=== PATIENT | female | born 1950 | race Caucasian/White ===

== ENCOUNTER → 2016-07-26 08:12 | Outpatient (CLI) | payer MEDICARE, OTHER ==
[2016-05-03 11:24] VITALS: BMI 26.6
[~2016-07-26 08:12] MED LIST: GABAPENTIN100 MG PO; HYDROCODONE-APA1 TAB PO; LISINOPRIL-HCTZ1 T11 PO; METOPROLOL TART50 MG PO; MULTI-DAY VITAM1 TAB PO; NORVASC10 MG PO; OMEPRAZOLE20 M1 PO; PERCOCET 10/3251 TA1 PO; PROAIR HFA8.5 GM INH; ROBAXIN-750750 MG PO; STOOL SOFTENER100 M1 PO
== END | disposition home or self-care (01) ==
LOC: D.MRI 07-23 08:00
DX: G89.18 Other acute postprocedural pain (principal)

== ENCOUNTER 2016-09-09 15:00 | Inpatient (IN) | payer MEDICARE, OTHER ==
[~2016-09-09] VITALS: Ht 160 cm; Wt 70.5 kg
--- NOTE | ~2016-09-09 | OP ---
PATIENT NAME: RIANNA MURRAY MEDICAL RECORD: [id number] :52 LOCATION:[id number] ADMISSION DATE:09/10/16 SURGEON: AMANDA BARKSDALE MD DATE OF OPERATION: 09/10/2016 DIAGNOSIS: L3-L4 spondylolisthesis and degenerative disc disease with nerve root compression. PROCEDURES: 1. L3-L4 facetectomy and hemilaminectomy. 2. L3-L4 radical discectomy. 3. L3-L4 transforaminal lumbar interbody fusion. 4. Pedicle fixation L3-L4 on the left. 5. L2-L3 left laminotomy and foraminotomy for nerve root compression at L2-L3. SURGEON: Amanda Barksdale MD FABRIC WORKER SUPERVISOR: None. ESTIMATED BLOOD LOSS: 200 cc. COMPLICATIONS: None. SUMMARY: The patient was taken to the operating room and after an adequate level of general anesthetic, was placed on a Gelfoam pads and prepped and draped in the usual aseptic manner. An incision was made to the left of the spinous processes of L2, L3 and L4 with a 10 blade after infiltrating with 1:400,000 of epinephrine and 0.5% lidocaine. Dissection was carried out down to the facet joint at L2-L3, and a facetectomy was performed with an Adson rongeur using a Ramesh retractor for exposure. When the facet at L2-L3 on the left had been removed, the laminotomy was enlarged by removing some of the lamina of L2 and L3 medially. Following this, ligamentum flavum was removed and dissection of the foraminal portion of the annulus was carried out. An osteotome was used to open up the annulus, removing osteophytes and then disc material was removed piecemeal using a straight and upbiting pituitary as well as various curettes to thoroughly clean out the disc space. When this had been completed, a [employer] spine trial was used to determine at a 9 mm cage would best fit the interspace and a 9 x 23 mm 0-degree titanium cage was then inserted in the interspace after being packed with autologous bone. Hydroxyapatite soaked in bone marrow aspirate was placed in the interspace as well to the side of the cage. When the cage was properly placed medially and anteriorly, then, pedicle screws were placed in L2 and L3 using Christine 5.5 x 45 mm ES2 screws on the left side at L2 and L3. The screws were then connected to a 50 mm connecting shlomo. Cap locks were placed on the screws and given a final tightening and then the flanges were broken off. Following this, the wound was irrigated and a posterolateral fusion mass was created with the hydroxyapatite material soaked in bone marrow aspirate placed in a gutter at L3-L4 on the left. Following this, the Ramesh retractor was moved up to the L2-L3 interspace and the medial aspect of the facet joint was removed with a Midas-Dinesh drill and then the laminotomy was enlarged by removing some of the lamina of L2 and L3 medially. The ligamentum flavum was removed, the neural foramen, the exiting nerve root was then enlarged and dissection was carried out beneath the exiting and traversing nerve root and it was determined that no free disc fragment was present. A thorough decompression having been performed by the foraminotomy, the wound was irrigated with an antibiotic solution and the wounds were closed with 2-0 Dexon on the fascia, 3-0 OPERATIVE REPORT [id number] RIANNA MURRAY Dexon on the subcutaneous tissue and a subcuticular stitch with 4-0 Dexon on the skin. The patient tolerated the procedure well and was taken to recovery in stable condition. TRANSINT:[id number] Voice Confirmation ID: [id number] DOCUMENT ID: [id number] AMANDA BARKSDALE MD CC: [id number] DICTATION DATE: 09/27/16 1337 TITLE CHECKER: 09/27/162238 DIS IN 09/14/16 [facility] [address] [place] [address]
[~2016-09-09 15:00] MED LIST changes: -PERCOCET 10/3251 TA1 PO; -ROBAXIN-750750 MG PO
[2016-09-09 15:42] LABS: BASOPHILS 0.3 % (0-2); HEMATOCRIT 40.9 % (36.0-48.0); IMMATURE GRANULOCYTES 0.1 % (0-5); LYMPHOCYTES 11.5 % (15-50); MCH 31.7 pg (26.0-34.0); MCHC 34.2 g/dL (31.0-37.0); MCV 92.5 fL (80.0-100.0); NEUTROPHILS 74.1 % (40-80); PLATELET COUNT 324 10x3/uL (130-400); RBC 4.42 10x6/uL (4.00-5.40); RDW 13.9 % (11.5-14.5); WBC 10.5 10x3/uL (4.8-10.8)
[2016-09-09 15:53] LABS: CALC OSMOLALITY 264 mosm/kg (275-300); CALCIUM 9.6 mg/dL (8.5-10.1); CARBON DIOXIDE 30.7 mmol/L (21.0-32.0); CHLORIDE - SERUM 92 mmol/L (98-107); CREATININE - SERUM 0.7 mg/dL (0.6-1.3); GLUCOSE 111 mg/dL (74-106); POTASSIUM - SERUM 3.3 mmol/L (3.5-5.1); SODIUM 131 mmol/L (136-145); UREA NITROGEN 15 mg/dL (7-18); eGFR NON AFRICAN AMERICAN 89 mL/min (90-120)
[2016-09-09 15:56] LABS: APPEARANCE CLEAR (CLEAR); BILIRUBIN NEGATIVE (NEGATIVE); COLOR DK YELLOW (YELLOW); GLUCOSE NEGATIVE (NEGATIVE); KETONE NEGATIVE (NEGATIVE); LEUKOCYTE ESTERASE TRACE (NEGATIVE); NITRITE NEGATIVE (NEGATIVE); PROTEIN NEGATIVE (NEGATIVE); SPECIFIC GRAVITY 1.015 (1.005-1.020); UROBILINOGEN NORMAL (NORMAL)
[2016-09-09 15:57] LABS: BACTERIA FEW /hpf (NONE SEEN); EPITHELIAL CELLS 0-5 /hpf (0-5); MUCUS >1+ /lpf (NONE SEEN); RED CELLS - URINE 0-5 /hpf (0-5); WHITE CELLS - URINE 0-5 /hpf (0-5)
[2016-09-10] VITALS (11 sets, daily range): BP systolic 83–111; BP diastolic 42–69; Ht 160 cm; Wt 70.5 kg
--- NOTE | 2016-09-10 09:32 | HP ---
PATIENT: RIANNA MURRAY MEDICAL RECORD: [id number] ACCOUNT: [id number] LOCATION:[facility] [place] 52 ADMISSION DATE: 09/10/16 HISTORY AND PHYSICAL EXAMINATION CHIEF COMPLAINT: Back pain. HISTORY OF PRESENT ILLNESS: This is a pleasant, small-framed white female who presented to our office with complaints of back pain. It has been ongoing worsening since March 2016. In April 2016, she had an L3-L4 lumbar nerve root compression released by Dr. Barksdale. She initially had some slight relief, but continues to have pain. She has been placed on Neurontin 300 mg t.i.d. with very little relief and taking hydrocodone. She complains of her left leg burning. She has a significant limp and it is difficult for her to walk for any distance and she is now at the point where she wants to proceed with surgery. PAST MEDICAL HISTORY: Significant for high blood pressure. PAST SURGICAL HISTORY: Hysterectomy, right total knee, lumbar laminectomy 2007 and again in April 2016. She has had surgery on her right hand and a bladder suspension. SOCIAL HISTORY: She is . Both parents have . She smokes half a pack per day. FAMILY DOCTOR: Christian Alatorre DO. ALLERGIES: None. REVIEW OF SYSTEMS: She denies any recent chest pain, shortness of breath or weight changes. PHYSICAL EXAMINATION: HEENT: Normocephalic. Pupils are equal, reactive to light. CHEST: Clear to auscultation. HEART: S1 and S2. ABDOMEN: Soft, bowel sounds present. EXTREMITIES: She has a positive straight leg raise on the left. She continues to have the decreased ankle jerk on the left with a positive straight leg raise. She does not use an assistive device. IMPRESSION: L3-L4 spondylolisthesis grade I. L2-L3 nerve root compression on the left. PLAN: An L3-L4 TLIF and an L2-L3 foraminotomy on the left. The risk and benefits of surgery have been explained to her in detail. Risks include bleeding, failure to relieve symptoms, problems with anesthesia and . Time was allowed for questions, questions were answered. The patient wishes to proceed with surgery. TRANSINT:[id number] Voice Confirmation ID: [id number] DOCUMENT ID: [id number] Dictated By: SOILA SHANIQUA I have interviewed/examined the above patient and agree with these documented HISTORY AND PHYSICAL [id number] RIANNA MURRAY findings. AMANDA BARKSDALE MD at 0935 at 0932 CC: [id number] DICTATION DATE: 09/09/16 1344 MANAGER AUTOMOTIVE: 09/09/16 2019 ADM IN [facility] [address] [place] [place] [id number]
--- NOTE | 2016-09-10 14:39 | NUR ---
NO NUMBNESS OT TINGLING REPORTED EQUAL STRENGHTS BOTH LOWER EXTREMETIES
--- NOTE | 2016-09-10 15:15 | NUR ---
RECEIVED TO ROOM 2211 VIA BED FROM PACU. AROUSED TO VERBAL AND TACTILE STIMULATION. ORIENTED X3. NO C/O PAIN OR DISCOMFORT AT THIS TIME. FAMILY AT BEDSIDE. DRESSING TO MID LOWER BACK WITH SOME SIGNS OF WOUND OOZING. WILL MONITOR.
--- NOTE | 2016-09-10 17:03 | NUR ---
DRESSING CHANGED TO MID LOWER BACK, WAS SATURATED. OOZING APPEARS TO HAVE ALMOST STOPPED AT THIS TIME. INCISION IS CLEAN WITH CLIPS INTACT.
--- NOTE | 2016-09-10 18:00 | NUR ---
BP CONTINUES TO BE LOW. 82/49. DR. ROJAS NOTIFIED OF SAME. NEW ORDERS RECEIVED FOR 500CC BOLUS. INITIATED BOLUS. WILL MONITOR BP.
[2016-09-11 08:03] VITALS: BP 99/51
--- NOTE | 2016-09-11 08:16 | NUR ---
AWAKE AND ALERT. ORIENTED X3. C/O BACK PAIN LEVEL 9. REQUESTED AND GIVEN ONE HYDROCODONE PO FOR SAME. WILL MONITOR. LUNGS ARE CLEAR BILATERALLY, NO COUGH NOTED. SKIN IS INTACT WITHOUT REDNESS EXCEPT INCISION TO MID LOWER BACK WHICH HAS A DRY INTACT DRESSIGN IN PLACE. IV TO LEFT FOREARM/WRIST PATENT WITHOUT REDNESS AT INSERTION SITE. WARM MOIST HEAT APPLIED TO BACK FOR PAIN MANAGEMENT. WILL MONITOR.
[2016-09-11 09:56] LABS: BASOPHILS 0 % (0-2); EOSINOPHILS 0 % (0-7); IMMATURE GRANULOCYTES 0.3 % (0-5); LYMPHOCYTES 7.8 % (15-50); MCH 31.3 pg (26.0-34.0); MCHC 34.3 g/dL (31.0-37.0); MCV 91.3 fL (80.0-100.0); NEUTROPHILS 84.9 % (40-80); RBC 3.55 10x6/uL (4.00-5.40); RDW 13.7 % (11.5-14.5); WBC 12.9 10x3/uL (4.8-10.8)
[2016-09-11 10:00] LABS: HEMATOCRIT 32.4 % (36.0-48.0); HEMOGLOBIN 11.1 g/dL (12-16); PLATELET COUNT 244 10x3/uL (130-400)
--- NOTE | 2016-09-11 10:05 | NUR ---
REQUESTED AND GIVEN ONE PERCOCET PO FOR CONTINUED C/O BACK PAIN LEVEL7. WILL MONITOR.
--- NOTE | 2016-09-11 10:45 | NUR ---
BACK BRACE HERE PER CURT. AMBULATED IN HALLWAY WITH PT WITH BRACE IN PLACE. REPORTS PAIN IMPROVED GREATLY WITH USE OF PERCOCET.
--- NOTE | 2016-09-11 12:15 | NUR ---
ATE MOST OF CL LUNCH. DENIES NEEDS.
[2016-09-11 12:33] VITALS: BP 109/63
--- NOTE | 2016-09-11 13:58 | NUR ---
UP TO BR PER SELF. VOIDED CLEAR YELLOW URINE WITHOUT DIFFICULTY. REQUESTED AND GIVEN ONE PERCOCET PO FOR C/O BACK PAIN LEVEL 9. WILL MONITOR.
[2016-09-11 15:34] VITALS: BP 136/85
--- NOTE | 2016-09-11 19:24 | NUR ---
NO CHANGES AT THIS TIME. REPORTS GOOD RELIEF WITH USE OF PERCOCET THIS TIME.
--- NOTE | 2016-09-11 19:51 | NUR ---
GREETED AND ASSESSED PT AT THIS TIME
[2016-09-11 20:00] VITALS: BP 138/81
--- NOTE | 2016-09-11 21:59 | NUR ---
ALL HS MEDS WERE TAKEN AND PT WAS ALSO GIVEN HER PERCOCET EARLY WITH A ROBAXIN TO TRY AND GET HER PAIN UNDER CONTROL. ASSISTED UP TO THE BATHROOM TO VOID AND THEN SHE IS BACK IN BED WITH HER BRACE OFF. DRESSING LOOKS GOOD.
[2016-09-12] VITALS: BP 118/65
[2016-09-12 04:00] VITALS: BP 140/69
--- NOTE | 2016-09-12 04:40 | NUR ---
HAS BEEN AWAKE MOST OF THE NIGHT WITH BACK PAIN. IS NOW WEARING HER BACK BRACE IN BED AND WAITING FOR TIME FOR HER NEXT PAIN MED WHICH WILL BE AT 5 AM.
[2016-09-12 07:57] VITALS: BP 127/69
--- NOTE | 2016-09-12 08:14 | NUR ---
AWAKE AND ALERT. ORIENTED X3. C/O INTENSE BACK PAIN THIS AM LEVEL 10. REQUESTED AND GIVEN ONE PERCOCET PO FOR SAME. WILL MONITOR. LUNGS ARE CLEAR BILATERALLY, NO COUGH NOTED. DRESSING TO MID LOWER BACK DRY AND INTACT. IV TO LEFT FOREARM IS PATENT WITHOUT REDNESS AT INSERTION SITE. NO NEEDS NOTED.
--- NOTE | 2016-09-12 10:00 | NUR ---
UP TO BR PER SELF. CONTINUES TO C/O BACK PAIN. BRACE IN PLACE AT THIS TIME. DENIES NEEDS.
--- NOTE | 2016-09-12 12:30 | NUR ---
REGULAR LUNCH TRAY SERVED IN ROOM. REQUESTED AND GIVEN ONE PERCOCET PO FOR C/O BACK PAIN LEVEL 9. WILL MONITOR.
[2016-09-12 12:41] VITALS: BP 114/68
--- NOTE | 2016-09-12 13:30 | NUR ---
RESTING QUIETLY AT THIS TIME. DENIES NEEDS. REPORTS GOOD RELIEF FROM PAIN AT THIS TIME.
--- NOTE | 2016-09-12 15:45 | NUR ---
NO CHANGES NOTED. DENIES NEEDS.
[2016-09-12 15:57] VITALS: BP 120/67
--- NOTE | 2016-09-12 18:28 | NUR ---
REPORTS GOOD RELIEF OF PAIN AFTER PERCOCET. NOT EATING AT THIS TIME. ENCOURAGED TO EAT SUPPER TRAY. NO CHANGES NOTED.
--- NOTE | 2016-09-12 19:30 | NUR ---
RECIEVED SHIFT REPORT. PT IS LYING IN BED. ALERT AND ORIENTED AND ABLE TO VERBALIZE NEEDS. IV IS PATENT AND SALINE LOC AT THIS TIME. PT IS AMBULATORY BUT WAS INSTRUCTED TO CALL FOR ANY ASSISTANCE NEEDED. PT STATES PAIN IS 4/10. DRESSING TO BACK C/D/I. NO NEEDS ARE VERBALIZED AT THIS TIME. WILL CONTINUE TO MONITOR. SIDE RAILS ARE UP X 2. BED IS IN LOWEST POSITION. CALL LIGHT IS WITHIN REACH.
[2016-09-12 20:00] VITALS: BP 129/71
--- NOTE | 2016-09-12 20:16 | NUR ---
SHIFT ASSESSMENT COMPLETED. NIGHT MEDS GIVEN WITH NO PROBLEMS. PT REQUESTING PRN ROBAXIN FOR BACK SPASM. ADMINISTERED PER ORDER. DENIES FURTHER NEEDS. WILL MONITOR. SIDE RAILS X 2. BED LOW. CALL LIGHT IN REACH.
[2016-09-13 04:00] VITALS: BP 133/80
--- NOTE | 2016-09-13 07:40 | NUR ---
PATIENT IS MOVING AROUND MOANING AND VERBALIZING PAIN. PATIENT STATED "I WAS TRYING TO SIT UP BUT MY PAIN IS TOO BAD." ASSISTED PATIENT GETTING COMFORTABLE IN BED. PATIENT DENIES FURTHER NEEDS. BED IN LOWEST POSITION, CALL LIGHT IN REACH. BED RAILS UP X'S 2. BACK BRACE ON.
[2016-09-13 07:54] VITALS: BP 121/73
--- NOTE | 2016-09-13 08:45 | NUR ---
PATIENT AMBULATING IN THE [place] WITH DAUGHTER. LUMBAR BRACE ON. NO SIGNS OF DISTRESS NOTED.
[2016-09-13 11:26] VITALS: BP 122/59
--- NOTE | 2016-09-13 11:35 | NUR ---
CHANGED DRESSING TO INCISION ON BACK. REMOVED DRESSING. INCISION IS WITHOUT REDNESS OR DRAINING. 6 RAFAELA INTACT. APPLIED NEW BORDERED GAUZE DRESSING.
[2016-09-13 15:41] VITALS: BP 114/69
--- NOTE | 2016-09-13 17:23 | NUR ---
Patient Name: RIANNA MURRAY Admission Status: Elective Accout number: [id number] Admission Date: 09-10-2016 : 1950 Admission Diagnosis: Attending: OJ Current LOS: 3 Anticipated DC Date: 09-15-2016 Planned Disposition: Home Primary Insurance: MEDICARE A & B Discharge Planning Comments: CM MET WITH PATIENT REGARDING D/C NEEDS AND PLANS. PATIENT STATED SHE LIVES ALONE AND HER DAUGHTER (BRAYDON) WILL DRIVE HER HOME. PATIENT HAS 1 STEP W/O RAIL TO ENTER HOME AND NO STAIRS INSIDE. PATIENT IS INDEPENDENT WITH HER CARE AND HAS NO DME AT HOME. PATIENTS PCP IS DR. PARMAR AND USES [facility] [address] FOR HER PHARMACY. CM WILL CONTINUE TO FOLLOW PATIENT WITH D/C NEEDS AND PLANS. PCP DR. GHULAM JUNG [address] [phone] BRAYDON OLIVARES [phone] Drill Presser: Conchita Hwang Is the patient Alert and Oriented? Yes 0 * How many steps to enter\exit or inside your home? 1 0 * PCP DR. PARMAR 0 * Pharmacy [facility] [address] 0 * Preadmission Environment Home Alone 0 * ADLs Independent 0 * Equipment None 0 * List name and contact numbers for known caregivers / representatives who currently or will assist patient after discharge: BRAYDON OLIVARES (DAUGHTER) [phone] * Community resources currently utilized None 0 * Additional services required to return to the preadmission environment? Yes 0 * Can the patient safely return to the preadmission environment? Yes 0 * Has this patient been hospitalized within the prior 30 days at any hospital? No 0 Grand Total: 0
--- NOTE | 2016-09-13 19:00 | NUR ---
PATIENT ON RIGHT SIDE IN BED. HOB 45 DEGREES. RR EVEN AND UNLABORED. 0 S/S OF DISTRESS. STATES PAIN IS A 7/10. IV TO LEFT WRIST S/L WITH NO REDNESS OR SWELLING. DRESSING TO LOWER BACK CDI. BRACE OFF AT THIS TIME. SCD'S IN ROOM BUT OFF. SRX2. BED LOW. CALL LIGHT WITHIN REACH.
[2016-09-13 20:00] VITALS: BP 134/77
--- NOTE | 2016-09-13 22:00 | NUR ---
PATIENT C/O SEVERE HEARTBURN. STATES THAT SHE TAKES OMEPRAZOLE AT HOME. SPOKE WITH DR. BA AND RECEIVED ORDER FOR PROTONIX. PROTONIX GIVEN. NIGHTTIME MEDS GIVEN. CHANGED DRESSING TO LOWER BACK.
--- NOTE | 2016-09-13 23:55 | NUR ---
PERCOCET AND ROBAXIN GIVEN FOR PAIN. WILL REASSESS.
[2016-09-14] VITALS: BP 133/80
--- NOTE | 2016-09-14 03:18 | NUR ---
PATIENT AWAKE IN BED. STATES THAT HER PAIN IS GONE BUT THAT SHE "JUST CAN'T SLEEP."
--- NOTE | 2016-09-14 04:35 | NUR ---
PERCOCET GIVEN FOR PAIN.
--- NOTE | 2016-09-14 07:30 | NUR ---
PATIENT IS RESTING QUIETLY WITH EYES CLOSED. NO SIGNS OF DISTRESS NOTED. BED IN LOWEST POSITION, CALL LIGHT IN REACH. BED RAILS UP X'S 2.
[2016-09-14 08:07] VITALS: BP 119/88
[2016-09-14] MEDS ORDERED: ROBAXIN-750750 MG PO (12:06)
[2016-09-14] MEDS ORDERED: PERCOCET 10/3251 TA1 PO (12:06)
--- NOTE | 2016-09-14 13:31 | NUR ---
CM REASSESSMENT NOTE: PATIENT IS DISCHARGING HOME TODAY-DAUGHTER DRIVING HER. PATIENTS WALKER WILL BE DELIVERED TO ROOM BEFORE D/C FROM [facility]. D/C IMM SERVED
--- NOTE | 2016-09-14 14:50 | NUR ---
DISCHARGE INSTRUCTIONS COMPLETED WITH PATIENT. D/C IV WITH CATH INTACT. PATIENT DENIES QUESTIONS. PAPER PERSCRIPTIONS GIVEN TO PATIENT. PATIENT LEFT VIA WHEELCHAIR WITH DAUGHTER AND POLISHER SAND. LUMBAR BRACE ON.
== END 2016-09-14 15:39 | disposition home or self-care (01) | DRG 552 ==
LOC: D.SDCHOLD 09-10 05:35 → D.MS 09-10 05:35 → D.SDCHOLD 09-10 11:00 → D.MS 09-10 14:37
PROVIDERS: ADMIT Neurological Surgery
DX: M43.16 Spondylolisthesis, lumbar region (principal); D62 Acute posthemorrhagic anemia; I10 Essential (primary) hypertension; F17.200 Nicotine dependence, unspecified, uncomplicated

== ENCOUNTER → 2016-10-22 07:28 | Outpatient (CLI) | payer MEDICARE, OTHER ==
[2016-09-10 15:19] VITALS: BMI 27.5
[~2016-10-22 07:28] MED LIST changes: +PERCOCET 10/3251 TA1 PO; +ROBAXIN-750750 MG PO
== END | disposition home or self-care (01) ==
LOC: D.RAD 07:28
DX: M43.26 Fusion of spine, lumbar region (principal)

== ENCOUNTER → 2016-11-26 08:00 | Outpatient (CLI) | payer MEDICARE, OTHER ==
[2016-09-10 15:19] VITALS: BMI 27.5
== END | disposition home or self-care (01) ==
LOC: D.RAD 08:00
DX: Z48.811 Encounter for surgical aftercare following surgery on the nervous system (principal)

== ENCOUNTER 2017-03-23 10:13 | Emergency (ER) | payer MEDICARE, OTHER ==
[2016-09-10 15:19] VITALS: BMI 27.5
[2017-03-23 10:42] LABS: BASOPHILS 0.4 % (0-2); EOSINOPHILS 1.9 % (0-7); HEMATOCRIT 37.7 % (36.0-48.0); HEMOGLOBIN 13.2 g/dL (12-16); IMMATURE GRANULOCYTES 0.3 % (0-5); LYMPHOCYTES 23.6 % (15-50); MCH 32.1 pg (26.0-34.0); MCV 91.7 fL (80.0-100.0); MEAN PLATELET VOLUME 8.4 fL (7.4-10.4); MONOCYTES 8.4 % (2-11); NEUTROPHILS 65.4 % (40-80); PLATELET COUNT 281 10x3/uL (130-400); RBC 4.11 10x6/uL (4.00-5.40); WBC 7.7 10x3/uL (4.8-10.8)
[2017-03-23 10:58] LABS: ALBUMIN 3.4 g/dL (3.4-5.0); ALKALINE PHOSPHATASE 120 U/L (46-116); ALT (SGPT) 24 U/L (10-68); BILIRUBIN - TOTAL 0.33 mg/dL (0.2-1.3); CALC OSMOLALITY 271 mosm/kg (275-300); CARBON DIOXIDE 28.5 mmol/L (21.0-32.0); CHLORIDE - SERUM 98 mmol/L (98-107); CREATININE - SERUM 0.7 mg/dL (0.6-1.3); GLUCOSE 115 mg/dL (74-106); POTASSIUM - SERUM 3.3 mmol/L (3.5-5.1); PROTEIN - SERUM 7.2 g/dL (6.4-8.2); SODIUM 136 mmol/L (136-145); UREA NITROGEN 11 mg/dL (7-18); eGFR NON AFRICAN AMERICAN 89 mL/min (90-120)
[2017-03-23 11:03] LABS: CREATINE KINASE 55 UL (21-215)
[2017-03-23 11:07] LABS: TROPONIN-I < 0.017 ng/mL (0.000-0.060)
[2017-03-23 14:38] LABS: APPEARANCE SLT CLOUDY (CLEAR); COLOR DK YELLOW (YELLOW)
[2017-03-23 14:39] LABS: BACTERIA MODERATE /hpf (NONE SEEN); BILIRUBIN NEGATIVE (NEGATIVE); CALCIUM OXALATE CRYSTALS 0-5 /hpf (NONE SEEN); EPITHELIAL CELLS 0-5 /hpf (0-5); GLUCOSE NEGATIVE (NEGATIVE); GRANULAR CAST OCC /lpf (NONE SEEN); HYALINE CAST 0-5 /lpf (NONE SEEN); KETONE NEGATIVE (NEGATIVE); MUCUS >1+ /lpf (NONE SEEN); NITRITE NEGATIVE (NEGATIVE); PROTEIN NEGATIVE (NEGATIVE); RED CELLS - URINE RARE /hpf (0-5); SPECIFIC GRAVITY 1.015 (1.005-1.020); WHITE CELLS - URINE 0-5 /hpf (0-5)
== END 2017-03-23 14:52 | disposition home or self-care (01) ==
LOC: D.ER 10:13
PROVIDERS: Emergency Medicine
DX: R55 Syncope and collapse (principal); F17.200 Nicotine dependence, unspecified, uncomplicated; I45.10 Unspecified right bundle-branch block

== ENCOUNTER 2017-06-07 07:14 | Outpatient (CLI) | payer MEDICARE, OTHER ==
[~2017-06-07] VITALS: Ht 157.5 cm; Wt 63.6 kg
--- NOTE | ~2017-06-07 | HEMODYNAMI ---
PATIENT:RIANNA MURRAY MEDICAL RECORD: [id number] : 52 LOCATION:[facility] ADMISSION DATE: 06/07/17 Generatedon:06/07/201710:05 Patient name: RIANNA MURRAY Patient #: [id number] : 1950 Date of study: 06/07/2017 Page: Of Hemodynamic Procedure Report Patient Data Patient Demographics Procedure consent was obtained First Name: RIANNA Gender: Female Last Name: TERRI : 1950 [facility] Initial: MARIELA Age: 67 year(s) Patient #: [id number] Race: SSN: [id number] Additional ID: [id number] Contact details Address: [address] [place] [address] STREET State: [place] City: [place] Zip code: [address] Admission Admission Data Admission Date: 06/07/2017 Admission Time: 7:14 Arrival Date: 06/07/2017 Arrival Time: 9:30 Admit Source: Other Insurance Payor: Medicare Height (in.): 62 BSA: 1.64 (m2) Height (cm.): 157.48 BMI: 25.61 (kg/m2) Weight (lbs.): 140 Weight (kg.): 63.5 Lab Results Lab Result Date: 06/07/2017 Lab Result Time: 0:00 Biochemistry Name Units Result Min Max BUN mg/dl 30 --(----)-* 7 18 Creatinine mg/dl 0.8 --(-*--)-- 0.6 1.3 CBC Name Units Result Min Max Hemoglobin g/dl 12.5 *-(----)-- 13.5 17.5 Procedure Procedure Types Cath Procedure Diagnostic Procedure [facility] w/Coronaries PCI Procedure Coronary Stent Coronary Stent Initial Miscellaneous Procedures Moderate Sedation up to 30 minutes Procedure Description Procedure Date Procedure Date: 06/07/2017 Procedure Start Time: 9:51 Procedure End Time: 10:03 Procedure Staff Name Function Ramon Hernandez MD Performing Physician Denise Galvez RT Monitor Vi Barksdale RT Scrub Donnell Veliz RN Nurse Procedure Data Cath Procedure Fluoroscopy Diagnostic fluoroscopy Total fluoroscopy Time: 3.4 time: 3.4 min min Diagnostic fluoroscopy Total fluoroscopy dose: 534 dose: 534 mGy mGy Contrast Material Contrast Material Type Amount (ml) Isovue 300 86 Entry Location Entry Primary Successful Side Size Upsize Upsize Entry Closure Danielle ccessful Closure Location (Fr) 1 (Fr) 2 (Fr) Remarks Device Remarks Radial Right 6 Fr Mechanical artery Short Compression Estimated blood loss: 5 ml Diagnostic catheters Device Type Used For End Catheter Placement DIAGNOSTIC [place] 110cm 5 Multi-vessel Fr catheter ([id number]) Angiography Procedure Complications No complications Procedure Medications Medication Administration Route Dosage Oxygen NC 2 l/min Heparin Flush Bag added to field 2 bags (1000units/500ml NS) 0.9% NaCl I.V. 100 ml/hr Radial Cocktail added to field 1 syringe (Verapomil 2mg/Nitro 400mcg/Heparin 1500units) Fentanyl I.V. 50 mcg Versed I.V. 1 mg Fentanyl I.V. 50 mcg Versed I.V. 1 mg Radial Cocktail I.A. 1 syringe (Verapomil 2mg/Nitro 400mcg/Heparin 1500units) Heparin Bolus I.V. 4000 units Hemodynamics Rest BSA: 1.64 (m2) HGB: 12.5 (g/dl) O2 Consumption: Estimated: 158.21 (ml/min) O2 Co nsumption indexed: Estimated:96.47 (ml/min/m) Heart Rate: 79 (bpm) Pressure Samples Time Site Value (mmHg) Purpose Heart Use Rate(bpm) 9:53 LV 25/16,13 Snapshot 88 Snapshots Pre Cath Intra NCS Post Cath Vital Signs Time Heart Resp SPO2 etCO2 NIBP Rhythm Pain Sedation Rate (ipm) (%) (mmHg) (mmHg) Status Level (bpm) 9:34:38 80 16 96 0 109/73(95) NSR 0 (11) 10(A) , No pain 9:38:44 79 17 100 37.5 110/72(93) NSR 0 (11) 10(A) , No pain 9:42:47 80 16 99 43.5 108/77(93) NSR 0 (11) 10(A) , No pain 9:46:51 81 19 97 42.1 112/75(95) NSR 0 (11) 10(A) , No pain 9:53:06 85 17 98 44.3 101/77(95) NSR 0 (11) 9(A) , No pain 9:57:08 89 16 93 44.3 100/70(96) NSR 0 (11) 9(A) , No pain 10:01:05 86 6 95 44.3 93/74(89) NSR 0 (11) 10(A) , No pain Medications Time Medication Route Dose Verified Delivered Reason Notes Effectiveness by by 9:36:52 Oxygen NC 2 l/min Ramon Jacobo Per physician David Veliz RN 9:36:59 Heparin Flush added 2 bags Ramon Jacobo used for Bag to David Veliz RN procedure (1000units/500ml field NS) 9:37:07 0.9% NaCl I.V. 100 Ramon Jacobo Per physician ml/hr David Veliz RN 9:37:14 Radial Cocktail added 1 Ramon Jacobo used for (Verapomil to syringe David Veliz RN procedure 2mg/Nitro field 400mcg/Heparin 1500units) 9:49:27 Fentanyl I.V. 50 mcg Ramon Jacobo for sedation David Veliz RN 9:49:34 Versed I.V. 1 mg Ramon Jacobo for sedation David Veliz RN 9:51:24 Fentanyl I.V. 50 mcg Ramon Jacobo for sedation David Veliz RN 9:51:29 Versed I.V. 1 mg Ramon Jacobo for sedation David Veliz RN 9:53:00 Radial Cocktail I.A. 1 Ramon Navarro for (Verapomil syringe David Hernandez MD vasodilation 2mg/Nitro 400mcg/Heparin 1500units) 9:59:39 Heparin Bolus I.V. 4000 Ramon Jacobo for units David Veliz RN anticoagulation Procedure Log Time Note 9:20:44 Informed consent obtained and on chart 9:20:46 Diagnostic Cath Status : Elective 9:21:19 Denise Galevz RT(R) sent for patient. Start room use. 9:21:20 Time tracking: Regular hours 9:21:24 Plan of Care:Hemodynamics will remain stable., Cardiac rhythm will remain stable., Comfort level will be maintained., Respiratory function will remain adequate., Patient/ family verbilizes understanding of procedure., Procedure tolerated without complication., Recovers from procedure without complications.. 9:23:48 Admit Source: Other 9:23:50 Arrival Date: 06/07/2017 9:30:00 AM 9:24:02 Insurance Payor : Medicare 9::41 Lab Result : Hemoglobin 12.5 g/dl 9::41 Lab Result : Creatinine 0.8 mg/dl 9::41 Lab Result : BUN 30 mg/dl 9:28:58 Patient received from Pre/Post Procedure Room to [facility] 2 Alert and oriented. Tansferred to table in Supine position. 9:28:59 Warm blankets applied, and danuta hugger turned on for patient comfort. 9:29:00 Correct patient and procedure confirmed by team. 9:29:00 ECG and BP/O2 sat monitors applied to patient. 9:33:36 Vital chart was started 9:36:52 Oxygen 2 l/min NC was administered by Donnell Veliz RN; Per physician; 9:36:59 Heparin Flush Bag (1000units/500ml NS) 2 bags added to field was administered by Donnell Veliz RN; used for procedure; 9:37:07 0.9% NaCl 100 ml/hr I.V. was administered by Donnell Veliz RN; Per physician; 9:37:14 Radial Cocktail (Verapomil 2mg/Nitro 400mcg/Heparin 1500units) 1 syringe added to field was administered by Donnell Veliz RN; used for procedure; 9:38:32 Baseline sample Acquired. 9:38:36 Rhythm: sinus rhythm 9:38:37 Full Disclosure recording started 9:38:43 H&P Date Dictated: 06/07/2017 H&P Addendum completed by physician on day of procedure. (MUST COMPLETE FOR ALL OUTPATIENTS), New H&P dictated by physician.. 9:38:44 Pre-procedure instructions explained to patient. 9:38:45 Pre-op teaching completed and patient verbalized understanding. 9:38:47 Family in patients room. 9:38:48 Patient NPO since Midnight. 9:38:52 Is the patient allergic to Iodine/contrast media? No. 9:38:53 Was the patient premedicated? No 9:38:57 Is patient on blood thinner?Yes 9:39:00 ACC The patient was administered the following blood thiners within the last 24 hours: ACCPlavix 9:39:02 Patient diabetic? No. 9:39:07 Previous problem with sedation/anesthesia? No ? 9:39:09 Snore? Yes 9:39:11 Sleep apnea? No 9:39:11 Deviated septum? No 9:39:12 Opens mouth fully? Yes 9:39:13 Sticks out tongue? Yes 9:39:17 Airway obstruction? Yes copd 9:39:21 Dentures? Yes out 9:39:58 Pre procedure: right dorsailis pedis pulse 1+ Palpable, but thready & weak; easily obliterated 9:40:00 Pre procedure: left dorsailis pedis pulse 1+ Palpable, but thready & weak; easily obliterated 9:40:03 Patient pain scale 0/10 ?. 9:40:10 IV patent on arrival in left forearm with 0.9% NaCl at [facility]. 9:41:09 Lab results completed and on chart. 9:41:14 Right Radial & Right Groin area was prepped with chlora-prep and draped in sterile fashion 9:41:15 Alarms reviewed by R. N. 9:41:15 Sharps counted by scrub and verified by R.N. 9:42:12 Patient Height : 62 inches 9:42:17 Patient Weight : 140 lbs 9:43:45 Physician arrived 9:43:46 --------ALL STOP TIME OUT------ 9:43:46 Final Timeout: patient, procedure, and site verified with staff and physician. All members of the team are in agreement. 9:43:50 Right Radial & Right Groin site verified by team. 9:43:54 Physical assessment completed. ASA score P 2 - A patient with mild systemic disease as per Ramon Hernandez MD. 9:43:57 Sedation plan: IV Moderate Sedation Medication:Versed, Fentanyl 9:44:43 Zero performed for pressure channel P1 9:44:49 Zero performed for pressure channel P1 9:44:57 Zero performed for pressure channel P1 9:45:12 Zero performed for pressure channel P1 9:45:23 Use device set Radial Dx or PCI 9:45:24 ACIST Syringe (59291) opened to sterile field. 9:45:24 Medline Cath Pack ([id number]) opened to sterile field. 9:45:25 Bag Decanter (2002S) opened to sterile field. 9:45:25 SHEATH 6FR Slender ([id number]) opened to sterile field. 9:45:27 DIAGNOSTIC WIRE .035 260cm J wire (243364) opened to sterile field. 9:45:27 ACIST Hand Control (02147) opened to sterile field. 9:45:28 ACIST Manifold (77517) opened to sterile field. 9:45:30 Tegaderm 4 x 4 (1626W) opened to sterile field. 9:45:33 MBrace Wrist Support ([id number]) opened to sterile field. 9:49:27 Fentanyl 50 mcg I.V. was administered by Donnell Veliz RN; for sedation; 9:49:34 Versed 1 mg I.V. was administered by Donnell Veliz RN; for sedation; 9:51:12 Procedure started. 9:51:16 Local anesthetic to right radial artery with Lidocaine 2% by Ramon Hernandez MD.INITIAL ACCESS ONLY 9:51:24 Fentanyl 50 mcg I.V. was administered by Donnell Veliz RN; for sedation; 9:51:24 A 6 Fr Short sheath was inserted into the Right Radial artery 9:51:29 Versed 1 mg I.V. was administered by Donnell Veliz RN; for sedation; 9:52:21 A DIAGNOSTIC [place] 110cm 5 Fr catheter (013236) was advanced over the wire and used for Multi-vessel Angiography. 9:53:00 Radial Cocktail (Verapomil 2mg/Nitro 400mcg/Heparin 1500units) 1 syringe I.A. was administered by Ramon Hernandez MD; for vasodilation; 9:53:42 LV hemodynamics recorded. 9:53:43 LV gram done using DUMAS 9:53:47 Injector settings: Ml/sec: 5, Volume: 15, 9:53:52 EF : 60 % 9:54:01 LCA angiography performed. 9:54:04 Injector settings: Ml/sec: 3, Volume: 6, 9:54:44 RCA angiography performed. 9:54:47 Injector settings: Ml/sec: 3, Volume: 6, 9:55:19 INFLATOR Merit Thork (PN9241) opened to sterile field. 9:55:57 GUIDE 6FR XBLAD 3.5 catheter ([id number]) opened to sterile field. 9:56:35 WHISPER 300cm guide wire ([id number]) opened to sterile field. 9:56:50 Catheter removed. 9:56:52 Proceeding to intervention. 9:56:59 6 Fr xblad 3.5 guide catheter was inserted over the wire 9:57:03 whisper wire advanced. 9:58:02 Wire advanced across lesion. 9:59:39 Heparin Bolus 4000 units I.V. was administered by Donnell Veliz RN; for anticoagulation; 10:01:34 Inflation Number: 1 A PROMUS Premier 2.25 x 8 stent ([id number]) was prepped and advanced across the Prox LAD. The stent was deployed at 21 BRENDA for 0:10 (min:sec). 10:01:59 Stent catheter was removed intact over wire. 10:01:59 Wire removed. 10:02:00 Guide catheter removed. 10:02:20 TR BAND Standard ([id number]) opened to sterile field. 10:02:30 Sheath removed intact; hemostasis achieved with Mechanical Compression to the Right Radial artery. 10:02:32 Procedure ended.(Physican Out) 10:02:48 Fluoroscopy time 03.40 minutes. 10:03:01 Fluoroscopy dose: 534 mGy 10:03:01 Flurop Dose total: 534 10:03:04 Contrast amount:Isovue 300 86ml. 10:03:06 Sharps counted by scrub and verified by R.N. 10:03:08 TR band inflated with 10cc of air. 10:03:09 Insertion/operative site no bleeding no hematoma. 10:03:12 Post right radial artery:stable 10:03:14 Post Procedure Pulses reassessed and unchanged 10:03:16 Post procedure rhythm: unchanged. 10:03:19 Estimated blood loss: 5 ml 10:03:20 Post procedure instruction explained to patient.Patient verbalizes understanding. 10:03:21 Patient needs reinforcement of post procedure teaching. 10:03:40 Procedure type changed to Cath procedure, Diagnostic procedure, LHC, LHC w/Coronaries, PCI procedure, Coronary Stent, Coronary Stent Initial, Miscellaneous Procedures, Moderate Sedation up to 30 minutes 10:03:41 Procedure and supply charges have been captured, reviewed, submitted and are correct. 10:03:45 Procedure Complication : No complications 10:03:47 Vital chart was stopped 10:03:48 See physician's report for complete and final results. 10:03:50 Report given to Pre/Post Procedure Room. 10:03:53 Patient transfered to Pre/Post Procedure Room with Stretcher. 10:03:54 Procedure ended. 10:03:54 Full Disclosure recording stopped 10:04:17 ACC-PCI Only Patient was given prescriptions, or instructed by Ramon Hernandez MD to start/continue the following medications upon discharge: Plavix 10:04:19 End room use (Document Last) Intervention Summary Intervention Notes Time ActionType Lesion and Equipment Action# Pressure Duration Attributes Used 10:01:34 Place stent Prox LAD PROMUS 1 21 00:10 Premier 2.25 x 8 stent ([id number]) Device Usage Item Name Manufacture Quantity Catalog Number Hospital Part Current Min imal Lot# / Charge Number Stock Stock Serial# Code ACIST Acist 1 68471 261788 566591 975577 20 Syringe Medical (47370) Systems Inc Medline Cath Cardinal 1 [id number] 116882 92651 805517 5 Pack Glyde ([id number]) Bag Decanter Microtek 1 2001S 558872 31598 434192 5 () Medical Inc. SHEATH 6FR Terumo 1 [id number] 978118 633616 716760 40 Slender ([id number]) DIAGNOSTIC St Rodrigo 1 656504 779660 644361 876247 30 WIRE .035 260cm J wire (887361) ACIST Hand Acist 1 04735 931599 473107 237043 5 Control Medical (60860) Systems Inc ACIST Acist 1 77227 556398 303367 446576 5 Manifold Medical (03751) Systems Inc Tegaderm 4 x 3M 1 1626W 948605 668928 713045 5 4 (1626W) MBrace Wrist Advanced 1 [id number] 495316 04872 725985 5 Support Vascular (796607507) Dynamics DIAGNOSTIC Terumo 1 405013 324091 171440 139675 5 [place] 110cm 5 Fr catheter (771619) INFLATOR Merit 1 QN5673 956124 608267 537082 15 [facility] Medical BasixCompak (DT9097) GUIDE 6FR Cardinal 1 [id number] 392390 952365 584529 10 XBLAD 3.5 Health catheter (94075049) WHISPER [place] 1 [id number] 986826 942696 028881 5 300cm guide Vascular wire (9156368QS) PROMUS [place] 1 [id number] 704182 995250 5 [id number] Premier 2.25 Scientific x 8 stent ([id number]) TR BAND Terumo 1 [id number] 102947 845704 384908 40 Standard ([id number]) Signature Audit [place] Stage Time Signature Unsigned Intra-Procedure 06/07/2017 Denise Galvez 10:05:04 AM RT(R) Signatures Monitor : Denise Galvez RT Signature : Date : Time : [facility] [address] [place] [address]
--- NOTE | ~2017-06-07 | HP ---
PATIENT: RIANNA MURRAY MEDICAL RECORD: [id number] ACCOUNT: [id number] LOCATION:ARPIT : 52 ADMISSION DATE: 06/07/17 HISTORY AND PHYSICAL EXAMINATION DIAGNOSES: 1. Angina. 2. Abnormal nuclear stress test. 3. Hypertension. HISTORY OF PRESENT ILLNESS: Mrs. Murray presents with increasing anginal symptomatology, risk stratify with stress testing, Cardiolite imaging revealed significant perfusion defect that is reversible, now brought for cardiac catheterization. REVIEW OF SYSTEMS: The patient reports easy bruising but reports no swollen glands. The patient reports no fever, no night sweats, no significant weight gain, no significant weight loss. No significant exercise tolerance. The patient reports no dry eyes, no irritation, no vision change. Patient reports no difficulty hearing and no ear pain. Patient reports no frequent nose bleeds or nose and sinus problems. Patient reports on arm pain on exertion. No shortness of breath while lying down. No history of heart murmur. Patient reports no cough, no wheezing or coughing up blood. Patient reports no abdominal pain, no vomiting. Normal appetite. No diarrhea and not vomiting blood. No nausea and no constipation. Patient reports no incontinence. No difficulty urinating. No hematuria. No increased frequency. Patient reports no muscle aches. No weakness, no arthralgias, no back pain. No swelling of the extremities. Patient reports no abnormal mole, no jaundice, no rashes. Reports no loss of consciousness. No weakness and no numbness. No seizures, dizziness, or headaches. The patient reports no depression, no sleep disturbance, feeling safe in a relationship and no alcohol abuse. Patient reports on fatigue. Reports no runny nose or sinus pressure. No itching, no hives, and no frequent sneezing. PHYSICAL EXAMINATION: GENERAL APPEARANCE: Well-nourished, well-developed, appears stated age. Level of distress, comfortable. PSYCHIATRIC: Mental status, alert, normal affect. Orientation, oriented to time, place and person. EYES: Lids and conjunctiva, noninjected. No discharge, no pallor. ENT: Lips, teeth, gums, normal dentition. Oropharynx, no cyanosis, no pallor. NECK: Carotid arteries, bilateral normal upstroke, no bruits, no thrills. JUGULAR VEINS: No jugular venous pressure or distention. CERVICAL LYMPH NODES: Nontender, nonenlarged. THYROID: Not enlarged. Nontender. No nodules. LUNGS: Respiratory effort, unlabored. CHEST: Normal curvature. No thoracic deformity. No chest wall tenderness. Percussion, resonant. Auscultation, clear. No wheezes, no rales, no rhonchi. CARDIOVASCULAR: Precordial exam, nondisplaced. No heaves or pericardial thrills. Rate and rhythm, regular. Heart sounds, normal S1, normal S2. No S3, no gallop, no rub. Systolic murmur, not heard. Diastolic murmur, not heard. EXTREMITIES: No cyanosis, no edema. Peripheral pulses, full and equal in all extremities, except as noted. No bruits appreciated. ABDOMEN: Soft, nondistended. Normal aorta. No bruit. Nontender. No masses. Liver, nontender, no hepatomegaly. Spleen, nontender, no splenomegaly. HISTORY AND PHYSICAL [id number] RIANNA MURRAY MUSCULOSKELETAL: No joint tenderness. No joint swelling. No erythema. NEUROLOGICAL: Normal gait, normal strength, normal tone. SKIN: Warm and dry. OVERALL IMPRESSION: Anginal symptomatology with abnormal nuclear stress test. We will proceed with coronary angiography. Further care depends upon findings of the angiography. TRANSINT:[id number] Voice Confirmation ID: [id number] DOCUMENT ID: [id number] ELIZABETH CRUZ MD at 1025 CC: [id number] DICTATION DATE: 06/07/17912 MANAGER UTILIZATION: 06/07/17 0934 DEP CLI 06/07/17 [place] [address] [place] [id number]
--- NOTE | ~2017-06-07 | OP ---
PATIENT NAME: RIANNA MURRAY MEDICAL RECORD: [id number] :52 LOCATION:D.CAT ADMISSION DATE: SURGEON: ELIZABETH CRUZ MD DATE OF OPERATION: 06/07/2017 PROCEDURES: 1. PTCA stent to LAD. 2. Left heart catheterization. 3. Selective coronary angiography. 4. Left ventriculogram. INDICATION: Angina and coronary artery disease. PROCEDURE IN DETAIL: After informed consent was obtained and after detailed explanation of risks, benefits as well as alternative therapies, the patient elected to proceed with angiogram and angioplasty. The right radial area was prepped and draped in normal sterile fashion. The right radial artery was cannulated via modified Seldinger technique with placement of 6-Estonian sheath. All catheters exchanged through this sheath. FINDINGS: The left ventriculogram was performed in standard 30-degree DUMAS view, reveals good cardiac wall motion throughout all segments. Overall ejection fraction estimated at 60%. SELECTIVE CORONARY ANGIOGRAPHY: 1. Left main showed no significant angiographic disease. 2. Left anterior descending has 85% stenosis in the mid vessel. 3. Left circumflex shows moderate irregularities, but no flow-limiting stenosis. 4. Right coronary artery has moderate irregularities, but no flow-limiting stenosis. PTCA STENT OF THE LAD: The stent used was a 2.25 x 8 mm Promus stent taken to 21 atmospheres. Result was 0% residual stenosis. OVERALL IMPRESSION: Successful percutaneous transluminal coronary angioplasty stent of the left anterior descending going from 85% initial stenosis to 0% residual. TRANSINT:[id number] Voice Confirmation ID: [id number] DOCUMENT ID: [id number] ELIZABETH CRUZ MD at 1025 CC: [id number] DICTATION DATE: 06/07/17 1006 SUPERVISOR SHIP MAINTENANCE SERVICES: 06/07/17 1213 DEP CLI 06/07/17 [place] [id number]
[2017-06-07] MEDS ORDERED: TEMAZEPAM30 MG PO (07:50)
[2017-06-07] MEDS ORDERED: CYCLOBENZAPRINE10 MG PO (07:51)
[2017-06-07] MEDS ORDERED: CELEXA20 MG PO (07:51)
[2017-06-07 08:01] VITALS: Ht 157.5 cm; Wt 63.6 kg
[2017-06-07 08:03] LABS: BASOPHILS 0.6 % (0-2); EOSINOPHILS 3.1 % (0-7); HEMATOCRIT 36.2 % (36.0-48.0); HEMOGLOBIN 12.5 g/dL (12-16); IMMATURE GRANULOCYTES 0.1 % (0-5); LYMPHOCYTES 22.4 % (15-50); MCHC 34.5 g/dL (31.0-37.0); MCV 92.6 fL (80.0-100.0); MEAN PLATELET VOLUME 9.1 fL (7.4-10.4); MONOCYTES 10.4 % (2-11); NEUTROPHILS 63.4 % (40-80); PLATELET COUNT 302 10x3/uL (130-400); RBC 3.91 10x6/uL (4.00-5.40); RDW 13.2 % (11.5-14.5)
[2017-06-07 08:06] LABS: CALC OSMOLALITY 282 mosm/kg (275-300); CALCIUM 9.7 mg/dL (8.5-10.1); CARBON DIOXIDE 31.8 mmol/L (21.0-32.0); CHLORIDE - SERUM 98 mmol/L (98-107); CREATININE - SERUM 0.8 mg/dL (0.6-1.3); GLUCOSE 117 mg/dL (74-106); POTASSIUM - SERUM 3.3 mmol/L (3.5-5.1); SODIUM 138 mmol/L (136-145); UREA NITROGEN 30 mg/dL (7-18); eGFR NON AFRICAN AMERICAN 76 mL/min (90-120)
[2017-06-07] MEDS ORDERED: PLAVIX75 MG PO (10:44)
[2017-06-07] MEDS ORDERED: BAYER CHEWABLE81 MG PO (10:44)
== END 2017-06-07 14:13 | disposition home or self-care (01) ==
LOC: D.CATH 07:14
PROVIDERS: Internal Medicine Interventional Cardiology
DX: I20.9 Angina pectoris, unspecified (principal); R94.30 Abnormal result of cardiovascular function study, unspecified; Z01.812 Encounter for preprocedural laboratory examination
CPT/HCPCS: 93458; C9600

== ENCOUNTER 2017-12-26 10:53 | Inpatient (IN) | payer MEDICARE, OTHER ==
[2017-12-26] VITALS (9 sets, daily range): BP systolic 100–111; BP diastolic 52–67
[~2017-12-26] VITALS: Ht 157.5 cm; Wt 74.4 kg
[~2017-12-26 10:53] MED LIST changes: +BAYER CHEWABLE81 MG PO; +CELEXA20 MG PO; +CYCLOBENZAPRINE10 MG PO; +PLAVIX75 MG PO; +TEMAZEPAM30 MG PO
[2017-12-26 11:45] LABS: HEMATOCRIT 29.5 % (36.0-48.0); HEMOGLOBIN 10.2 g/dL (12-16); MCH 30.6 pg (26.0-34.0); MCHC 34.6 g/dL (31.0-37.0); MCV 88.6 fL (80.0-100.0); MEAN PLATELET VOLUME 8.1 fL (7.4-10.4); PLATELET COUNT 410 10x3/uL (130-400); RBC 3.33 10x6/uL (4.00-5.40); RDW 13.7 % (11.5-14.5); WBC 25.8 10x3/uL (4.8-10.8)
[2017-12-26 11:52] LABS: ALBUMIN 2.2 g/dL (3.4-5.0); ALKALINE PHOSPHATASE 200 U/L (46-116); ALT (SGPT) 18 U/L (10-68); CALC OSMOLALITY 273 mosm/kg (275-300); CALCIUM 9.2 mg/dL (8.5-10.1); CARBON DIOXIDE 27.1 mmol/L (21.0-32.0); CHLORIDE - SERUM 92 mmol/L (98-107); CREATININE - SERUM 1.6 mg/dL (0.6-1.3); GLUCOSE 139 mg/dL (74-106); POTASSIUM - SERUM 3.7 mmol/L (3.5-5.1); PROTEIN - SERUM 7.7 g/dL (6.4-8.2); SODIUM 130 mmol/L (136-145); UREA NITROGEN 42 mg/dL (7-18); eGFR NON AFRICAN AMERICAN 34 mL/min (90-120)
[2017-12-26 12:08] LABS: CKMB 0.6 U/L (0.0-3.6); CREATINE KINASE 47 UL (21-215); PRO BNP 373 pg/mL (0-125)
[2017-12-26 12:09] LABS: TROPONIN-I < 0.017 ng/mL (0.000-0.060)
[2017-12-26 12:17] LABS: LYMPHOCYTES 3 % (15-50); MONOCYTES 14 % (2-11); NEUTROPHILS 76 % (40-80); PLATELET ESTIMATE INCREASED
[2017-12-26 12:18] LABS: HYPOCHROMASIA OCC; ROULEAUX OCC
[2017-12-27] VITALS (7 sets, daily range): BP systolic 88–106; BP diastolic 49–61; Ht 157.5 cm; Wt 74.4 kg
[2017-12-27 06:07] LABS: BASOPHILS 0.1 % (0-2); EOSINOPHILS 0.4 % (0-7); HEMATOCRIT 28.4 % (36.0-48.0); HEMOGLOBIN 9.7 g/dL (12-16); IMMATURE GRANULOCYTES 0.9 % (0-5); LYMPHOCYTES 7.3 % (15-50); MCH 30.7 pg (26.0-34.0); MCHC 34.2 g/dL (31.0-37.0); MCV 89.9 fL (80.0-100.0); MEAN PLATELET VOLUME 8.9 fL (7.4-10.4); MONOCYTES 4.7 % (2-11); NEUTROPHILS 86.6 % (40-80); PLATELET COUNT 348 10x3/uL (130-400); RBC 3.16 10x6/uL (4.00-5.40); RDW 14.3 % (11.5-14.5); WBC 27.7 10x3/uL (4.8-10.8)
[2017-12-27 06:33] LABS: ANION GAP 15.2 mmol/L (8-16); CALCIUM 9.3 mg/dL (8.5-10.1); CARBON DIOXIDE 27.1 mmol/L (21.0-32.0); CREATININE - SERUM 1.7 mg/dL (0.6-1.3); POTASSIUM - SERUM 3.3 mmol/L (3.5-5.1)
[2017-12-27 16:59] LABS: % SATURATION 13 % (15-55); IRON 22 ug/dl (35-150); TOTAL IRON BIND CAPACITY 163 ug/dl (260-445); UNSAT IRON BIND CAPACITY 141 ug/dl (150-375)
[2017-12-27 17:18] LABS: MAGNESIUM - SERUM 2.1 mg/dL (1.8-2.4)
[2017-12-28 06:10] LABS: ANION GAP 13.9 mmol/L (8-16); CALCIUM 9.1 mg/dL (8.5-10.1); CARBON DIOXIDE 27.2 mmol/L (21.0-32.0); POTASSIUM - SERUM 4.1 mmol/L (3.5-5.1)
[2017-12-28 06:19] LABS: CREATININE - SERUM 2.4 mg/dL (0.6-1.3)
[2017-12-28 06:32] LABS: BASOPHILS 0 % (0-2); EOSINOPHILS 1.5 % (0-7); HEMATOCRIT 27.8 % (36.0-48.0); HEMOGLOBIN 9.5 g/dL (12-16); IMMATURE GRANULOCYTES 1.6 % (0-5); MCH 30.9 pg (26.0-34.0); MCHC 34.2 g/dL (31.0-37.0); MCV 90.6 fL (80.0-100.0); MEAN PLATELET VOLUME 9.2 fL (7.4-10.4); MONOCYTES 5.2 % (2-11); NEUTROPHILS 87.7 % (40-80); PLATELET COUNT 355 10x3/uL (130-400); RBC 3.07 10x6/uL (4.00-5.40); RDW 14.5 % (11.5-14.5); WBC 23.3 10x3/uL (4.8-10.8)
[2017-12-28 06:42] VITALS: BP 91/54
[2017-12-28 09:22] LABS: FOLATE (FOLIC ACID) - SERUM 16.6 ng/mL (>3.0)
[2017-12-28 13:57] VITALS: BP 94/56
[2017-12-28 18:26] LABS: APPEARANCE HAZY (CLEAR); BILIRUBIN NEGATIVE (NEGATIVE); COLOR AMBER (YELLOW); GLUCOSE NEGATIVE (NEGATIVE); KETONE NEGATIVE (NEGATIVE); NITRITE NEGATIVE (NEGATIVE); PROTEIN TRACE mg/dL (NEGATIVE); UROBILINOGEN NORMAL (NORMAL)
[2017-12-28 18:28] LABS: WHITE CELLS - URINE 0-5 /hpf (0-5)
[2017-12-28 18:29] LABS: BACTERIA FEW /hpf (NONE SEEN); EPITHELIAL CELLS 0-5 /hpf (0-5); GRANULAR CAST 0-5 /lpf (NONE SEEN)
[2017-12-28 20:42] VITALS: BP 143/50
[2017-12-29 00:53] LABS: CREATININE - URINE 129.3 mg/dL (30-125); POTASSIUM - URINE 35.5 MMOL/L (12.0-62.0); PROTEIN - URINE 99.1 mg/dL (0.0-11.9)
[2017-12-29 00:59] VITALS: BP 103/56
[2017-12-29 05:14] VITALS: BP 125/67
[2017-12-29 05:15] LABS: BASOPHILS 0.1 % (0-2); EOSINOPHILS 0.2 % (0-7); HEMATOCRIT 26.8 % (36.0-48.0); HEMOGLOBIN 9.1 g/dL (12-16); IMMATURE GRANULOCYTES 1.8 % (0-5); LYMPHOCYTES 2.1 % (15-50); MCH 30.1 pg (26.0-34.0); MCV 88.7 fL (80.0-100.0); MEAN PLATELET VOLUME 9.1 fL (7.4-10.4); MONOCYTES 0.8 % (2-11); PLATELET COUNT 383 10x3/uL (130-400); RBC 3.02 10x6/uL (4.00-5.40); RDW 14.4 % (11.5-14.5); WBC 19.8 10x3/uL (4.8-10.8)
[2017-12-29 05:38] LABS: ANION GAP 14.7 mmol/L (8-16); CALCIUM 8.9 mg/dL (8.5-10.1); CARBON DIOXIDE 24.7 mmol/L (21.0-32.0); POTASSIUM - SERUM 4.4 mmol/L (3.5-5.1); VANCOMYCIN - RANDOM 22.8 ug/mL (10.0-20.0)
[2017-12-29 05:47] LABS: CREATININE - SERUM 1.6 mg/dL (0.6-1.3)
[2017-12-29 07:30] VITALS: BP 120/58
[2017-12-29 11:40] VITALS: BP 128/64
[2017-12-29 14:25] LABS: ANA REFLEX - DIRECT Negative (Negative)
[2017-12-29 20:35] VITALS: BP 107/49
[2017-12-30 05:18] LABS: BASOPHILS 0 % (0-2); EOSINOPHILS 0 % (0-7); HEMATOCRIT 26.6 % (36.0-48.0); HEMOGLOBIN 8.9 g/dL (12-16); IMMATURE GRANULOCYTES 2.4 % (0-5); LYMPHOCYTES 2.5 % (15-50); MCH 30.4 pg (26.0-34.0); MCHC 33.5 g/dL (31.0-37.0); MCV 90.8 fL (80.0-100.0); MEAN PLATELET VOLUME 8.7 fL (7.4-10.4); MONOCYTES 3.1 % (2-11); PLATELET COUNT 397 10x3/uL (130-400); RBC 2.93 10x6/uL (4.00-5.40); RDW 14.4 % (11.5-14.5)
[2017-12-30 05:34] VITALS: BP 104/70
[2017-12-30 05:34] LABS: ANION GAP 10.8 mmol/L (8-16); CALCIUM 9.3 mg/dL (8.5-10.1); CARBON DIOXIDE 27.8 mmol/L (21.0-32.0); POTASSIUM - SERUM 4.6 mmol/L (3.5-5.1); VANCOMYCIN - RANDOM 23.7 ug/mL (10.0-20.0)
[2017-12-30 05:37] LABS: CREATININE - SERUM 0.9 mg/dL (0.6-1.3)
[2017-12-30 08:26] VITALS: BP 109/51
[2017-12-30 11:43] VITALS: BP 112/55
[2017-12-30 15:10] VITALS: BP 118/58
[2017-12-30 20:00] VITALS: BP 138/66
[2017-12-31] VITALS: BP 130/79
[2017-12-31 04:00] VITALS: BP 119/76
[2017-12-31 06:55] LABS: BASOPHILS 0 % (0-2); EOSINOPHILS 0.1 % (0-7); HEMATOCRIT 26.4 % (36.0-48.0); HEMOGLOBIN 8.8 g/dL (12-16); IMMATURE GRANULOCYTES 2.6 % (0-5); LYMPHOCYTES 3.6 % (15-50); MCH 30.4 pg (26.0-34.0); MCHC 33.3 g/dL (31.0-37.0); MCV 91.3 fL (80.0-100.0); MEAN PLATELET VOLUME 8.5 fL (7.4-10.4); MONOCYTES 2.8 % (2-11); NEUTROPHILS 90.9 % (40-80); PLATELET COUNT 409 10x3/uL (130-400); RBC 2.89 10x6/uL (4.00-5.40); RDW 14.9 % (11.5-14.5); WBC 16.9 10x3/uL (4.8-10.8)
[2017-12-31 07:09] LABS: CALC OSMOLALITY 273 mosm/kg (275-300); CALCIUM 9.2 mg/dL (8.5-10.1); CARBON DIOXIDE 28.3 mmol/L (21.0-32.0); CHLORIDE - SERUM 101 mmol/L (98-107); CREATININE - SERUM 0.7 mg/dL (0.6-1.3); GLUCOSE 171 mg/dL (74-106); POTASSIUM - SERUM 5.1 mmol/L (3.5-5.1); SODIUM 133 mmol/L (136-145); UREA NITROGEN 24 mg/dL (7-18); eGFR NON AFRICAN AMERICAN 89 mL/min (90-120)
[2017-12-31 08:09] VITALS: BP 110/65
[2017-12-31 11:46] VITALS: BP 116/71
[2017-12-31 15:14] VITALS: BP 112/63
[2017-12-31 20:01] VITALS: BP 124/70
[2018-01-01] VITALS (7 sets, daily range): BP systolic 102–144; BP diastolic 62–84
[2018-01-01 05:17] LABS: BASOPHILS 0.1 % (0-2); EOSINOPHILS 0.1 % (0-7); HEMATOCRIT 27.1 % (36.0-48.0); HEMOGLOBIN 8.9 g/dL (12-16); IMMATURE GRANULOCYTES 4.4 % (0-5); LYMPHOCYTES 5.2 % (15-50); MCH 29.9 pg (26.0-34.0); MCHC 32.8 g/dL (31.0-37.0); MCV 90.9 fL (80.0-100.0); MEAN PLATELET VOLUME 8.4 fL (7.4-10.4); NEUTROPHILS 85.2 % (40-80); PLATELET COUNT 406 10x3/uL (130-400); RBC 2.98 10x6/uL (4.00-5.40); RDW 14.8 % (11.5-14.5); WBC 16.7 10x3/uL (4.8-10.8)
[2018-01-01 05:28] LABS: CALC OSMOLALITY 274 mosm/kg (275-300); CARBON DIOXIDE 29.1 mmol/L (21.0-32.0); CHLORIDE - SERUM 100 mmol/L (98-107); CREATININE - SERUM 0.7 mg/dL (0.6-1.3); GLUCOSE 155 mg/dL (74-106); POTASSIUM - SERUM 4.8 mmol/L (3.5-5.1); SODIUM 135 mmol/L (136-145); UREA NITROGEN 19 mg/dL (7-18); eGFR NON AFRICAN AMERICAN 89 mL/min (90-120)
[2018-01-02 04:16] VITALS: BP 150/91
[2018-01-02 05:13] LABS: BASOPHILS 0.1 % (0-2); EOSINOPHILS 0.1 % (0-7); HEMOGLOBIN 8.9 g/dL (12-16); IMMATURE GRANULOCYTES 5.1 % (0-5); LYMPHOCYTES 5.1 % (15-50); MCH 30.1 pg (26.0-34.0); MCV 91.2 fL (80.0-100.0); MEAN PLATELET VOLUME 8.5 fL (7.4-10.4); MONOCYTES 3.8 % (2-11); NEUTROPHILS 85.8 % (40-80); PLATELET COUNT 412 10x3/uL (130-400); RBC 2.96 10x6/uL (4.00-5.40); RDW 14.8 % (11.5-14.5); WBC 14.1 10x3/uL (4.8-10.8)
[2018-01-02 05:32] LABS: CALC OSMOLALITY 277 mosm/kg (275-300); CALCIUM 8.8 mg/dL (8.5-10.1); CARBON DIOXIDE 27.2 mmol/L (21.0-32.0); CHLORIDE - SERUM 99 mmol/L (98-107); CREATININE - SERUM 0.7 mg/dL (0.6-1.3); POTASSIUM - SERUM 4.6 mmol/L (3.5-5.1); SODIUM 134 mmol/L (136-145); UREA NITROGEN 17 mg/dL (7-18); eGFR NON AFRICAN AMERICAN 89 mL/min (90-120)
[2018-01-02 05:36] LABS: GLUCOSE 244 mg/dL (74-106)
[2018-01-02 07:49] VITALS: BP 156/78
[2018-01-02 11:03] VITALS: BP 128/69
[2018-01-02] MEDS ORDERED: LEVAQUIN500 MG PO (13:40)
[2018-01-02] MEDS ORDERED: BENZONATATE200 MG PO (13:41)
[2018-01-02] MEDS ORDERED: SINGULAIR10 MG PO (13:41)
[2018-01-02] MEDS ORDERED: MUCINEX DM ER1 EAC1 PO (13:41)
[2018-01-02] MEDS ORDERED: FLORAJEN3 CAPS460 MG PO (13:41)
[2018-01-02] MEDS ORDERED: PREDNISONE10 MG PO (13:42)
[2018-01-02] MEDS ORDERED: SYMBICORT 16010.2 GM INH (15:03)
[2018-01-02] MEDS ORDERED: FLUTICASONE PRO16 GM NASAL (15:05)
== END 2018-01-02 16:48 | disposition home or self-care (01) | DRG 177 ==
LOC: D.ER 10:53 → D.M2 13:35 → D.EDHOLD 13:35 → D.M2 23:40 → D.SDCHOLD 12-31 01:32 → D.M2 12-31 01:32
PROVIDERS: Family Medicine; Internal Medicine Nephrology; Internal Medicine Pulmonary Disease
PROC: 06HY33Z Insertion of Infusion Device into Lower Vein, Percutaneous Approach (ICD-10-PCS; principal; 2017-12-30)
DX: J15.6 Pneumonia due to other Gram-negative bacteria (principal); J96.21 Acute and chronic respiratory failure with hypoxia; J44.1 Chronic obstructive pulmonary disease with (acute) exacerbation; E87.1 Hypo-osmolality and hyponatremia; J13 Pneumonia due to Streptococcus pneumoniae; I10 Essential (primary) hypertension; E87.6 Hypokalemia

== ENCOUNTER → 2018-02-06 07:35 | Outpatient (CLI) | payer MEDICARE, OTHER ==
[2017-12-27 16:22] VITALS: BMI 31.1
[~2018-02-06 07:35] MED LIST changes: +BENZONATATE200 MG PO; +FLORAJEN3 CAPS460 MG PO; +FLUTICASONE PRO16 GM NASAL; +LEVAQUIN500 MG PO; +MUCINEX DM ER1 EAC1 PO; +PREDNISONE10 MG PO; +SINGULAIR10 MG PO; +SYMBICORT 16010.2 GM INH
== END | disposition home or self-care (01) ==
LOC: D.RT 07:35
DX: J18.9 Pneumonia, unspecified organism (principal)

== ENCOUNTER 2018-04-05 05:33 | Day surgery (SDC) | payer MEDICARE, OTHER ==
[~2018-04-05] VITALS: Ht 157.5 cm; Wt 72.7 kg
--- NOTE | ~2018-04-05 | OP ---
PATIENT NAME: RIANNA MURRAY MEDICAL RECORD: [id number] :52 LOCATION:J[facility]IAN ADMISSION DATE: SURGEON: ASHLEY LEDEZMA DO DATE OF OPERATION: 04/05/2018 PROCEDURE: EGD with biopsies. INDICATIONS FOR PROCEDURE: GERD, heartburn, abnormal weight loss. SCOPE: Olympus video gastroscope. MEDICATIONS: Propofol 100 mg IV per anesthesia. ESTIMATED BLOOD LOSS: Minimal. COMPLICATIONS: None. FINDINGS: Informed consent was given. The patient was sedated with the above medication and placed on her left side. The endoscope was advanced under direct visualization through the mouth to the second portion of the duodenum with ease. The upper, middle, and lower thirds of the esophagus appeared normal. At the GE junction, there was some mild LA class A reflux-induced esophagitis. The endoscope was advanced beyond the GE junction into the stomach and retroflexed to view the cardia, where a medium to large sized mixed hiatal hernia was present. There were no associated ulcers or erosions. The endoscope was advanced throughout the body and antrum and prepyloric regions of the stomach which appeared normal. Random cold forceps biopsies were taken to submit for histopathology and to rule out the presence of H. pylori. The endoscope was advanced beyond the pylorus into the duodenum where the entire examined duodenum down to the second portion appeared normal. The endoscope was withdrawn from the patient. The patient tolerated the procedure well and there were no complications. IMPRESSION: 1. LA class A reflux-induced esophagitis. 2. Medium to large hiatal hernia with a fair amount of stomach above the diaphragm hiatus. PLAN AND RECOMMENDATIONS: 1. Discharge home when recovery parameters are met. 2. Follow up biopsy specimen results. 3. GERD diet and reflux precautions. 4. We will offer referral to general surgery for surgical repair of her large hiatal hernia. 5. Recommend continuing current antacid therapy at 40 mg or equivalent for symptoms. TRANSINT:[id number] Voice Confirmation ID: [id number] DOCUMENT ID: [id number] OPERATIVE REPORT [id number] RIANNA MURRAY ASHLEY LEDEZMA DO at 1012 CC: [id number] DICTATION DATE: 04/05/18 0754 MARITIME GUARD: 04/05/18 0827 [facility] 04/05/18 [facility] [address] [place] [address]
[2018-04-05 06:22] LABS: HEMATOCRIT 35.9 % (36.0-48.0); HEMOGLOBIN 11.6 g/dL (12-16); MCH 30.4 pg (26.0-34.0); MCHC 32.3 g/dL (31.0-37.0); MCV 94.2 fL (80.0-100.0); MEAN PLATELET VOLUME 8.9 fL (7.4-10.4); RBC 3.81 10x6/uL (4.00-5.40); WBC 10.4 10x3/uL (4.8-10.8)
[2018-04-05 06:25] VITALS: BP 93/63; Ht 157.5 cm; Wt 72.7 kg
== END 2018-04-05 08:43 | disposition home or self-care (01) ==
LOC: D.OPS 05:33
PROVIDERS: Anesthesiology
DX: K21.0 Gastro-esophageal reflux disease with esophagitis (principal); K44.9 Diaphragmatic hernia without obstruction or gangrene; R12 Heartburn; R63.4 Abnormal weight loss

== ENCOUNTER 2018-04-12 06:18 | Day surgery (SDC) | payer MEDICARE, OTHER ==
[~2018-04-12] VITALS: Ht 157.5 cm; Wt 71.8 kg
--- NOTE | ~2018-04-12 | OP ---
PATIENT NAME: RIANNA MURRAY MEDICAL RECORD: [id number] :52 LOCATION:[facility] ADMISSION DATE: SURGEON: ASHLEY LEDEZMA DO DATE OF OPERATION: 04/12/2018 PROCEDURE: Colonoscopy with polypectomy and biopsies. INDICATIONS FOR PROCEDURE: Stool DNA based colorectal cancer screening, positive test. SCOPE: Olympus video pediatric colonoscope. MEDICATIONS: Propofol 480 mg IV per anesthesia. WITHDRAWAL TIME: 18 minutes. ESTIMATED BLOOD LOSS: Minimal. COMPLICATIONS: None. FINDINGS AND DESCRIPTION OF PROCEDURE: Informed consent was given. The patient was made comfortable with the above medication. After reaching an adequate level of sedation by slow IV push, the patient was placed on her left side. A digital rectal examination was performed and was normal. The endoscope was then advanced under direct visualization through the rectum to the cecum, confirmed by the presence of the appendiceal orifice and ileocecal valve. The endoscope was slowly withdrawn and mucosa was carefully examined. The prep quality was fair. There was some adherent stool in the ascending colon and cecum. A significant time was spent washing this area as good as possible for visualization. There were 4 polyps visualized on today's examination. The first was located in the ascending colon. It was a benign appearing sessile polyp, which measured approximately 4-mm in diameter. It was removed using hot forceps. In the sigmoid colon, there were 3 separate polyps, which were benign-appearing and sessile. They ranged in size from 3-8 mm in diameter. They were all removed using hot forceps. There was a linear ulcer located at 50 cm near the splenic flexure. It did not appear acute and appeared to be in a healing state. There was no stigmata of bleeding. Cold forceps biopsies were taken of the ulcer. Retroflexion was performed in the rectum with visualization of a normal rectal wall. There were no diverticula seen on today's examination. The endoscope was withdrawn from the patient. The patient tolerated the procedure well and there were no complications. IMPRESSION: 1. Four polyps as described above, removed using hot forceps. 2. A single linear ulcer located near the splenic flexure at approximately 50 cm. The ulcer itself measured approximately 8 cm in length. Findings may be consistent with possible ischemia versus nonsteroidal anti-inflammatory drugs-induced ulceration. 3. Otherwise, normal colonoscopy. PLAN AND RECOMMENDATIONS: 1. Discharge home when recovery parameters are met. 2. Follow up biopsy specimen results. 3. Continue current diet. 4. Minimize NSAIDs. OPERATIVE REPORT [id number] RIANNA MURRAY 5. Recall colonoscopy anticipated in 2-3 years. We will follow up biopsy specimen results and make recommendations based on those results. TRANSINT:[id number] Voice Confirmation ID: [id number] DOCUMENT ID: [id number] ASHLEY LEDEZMA DO CC: [id number] DICTATION DATE: 04/12/18906 CLASSIFIED ADVERTISING CLERK: 04/12/18 1043 [facility] 04/12/18 [address] [address] [place] [address]
[2018-04-12 06:38] LABS: BASOPHILS 0.4 % (0-2); EOSINOPHILS 2.4 % (0-7); HEMATOCRIT 35.1 % (36.0-48.0); HEMOGLOBIN 11.6 g/dL (12-16); IMMATURE GRANULOCYTES 0.1 % (0-5); LYMPHOCYTES 14.3 % (15-50); MCH 30.1 pg (26.0-34.0); MCV 91.2 fL (80.0-100.0); MEAN PLATELET VOLUME 8.5 fL (7.4-10.4); MONOCYTES 8.2 % (2-11); NEUTROPHILS 74.6 % (40-80); PLATELET COUNT 312 10x3/uL (130-400); RBC 3.85 10x6/uL (4.00-5.40); RDW 14.8 % (11.5-14.5); WBC 8.5 10x3/uL (4.8-10.8)
[2018-04-12 06:56] LABS: CALC OSMOLALITY 272 mosm/kg (275-300); CALCIUM 9.5 mg/dL (8.5-10.1); CARBON DIOXIDE 31.8 mmol/L (21.0-32.0); CHLORIDE - SERUM 97 mmol/L (98-107); CREATININE - SERUM 0.8 mg/dL (0.6-1.3); GLUCOSE 111 mg/dL (74-106); POTASSIUM - SERUM 3.1 mmol/L (3.5-5.1); SODIUM 136 mmol/L (136-145); UREA NITROGEN 12 mg/dL (7-18); eGFR NON AFRICAN AMERICAN 76 mL/min (90-120)
[2018-04-12] MEDS ORDERED: CLARITIN 10 MG10 MG PO (07:03)
[2018-04-12 07:10] VITALS: BP 139/74; Ht 157.5 cm; Wt 71.8 kg
== END 2018-04-12 09:54 | disposition home or self-care (01) ==
LOC: D.OPS 06:18
PROVIDERS: Anesthesiology
DX: K63.5 Polyp of colon (principal); K63.3 Ulcer of intestine; Z01.812 Encounter for preprocedural laboratory examination

== ENCOUNTER 2018-05-04 11:14 | Outpatient (CLI) | payer MEDICARE, OTHER ==
[2018-04-12 07:10] VITALS: BMI 28.9
[~2018-05-04 11:14] MED LIST changes: +CLARITIN 10 MG10 MG PO
== END 2018-05-04 12:55 | disposition home or self-care (01) ==
LOC: D.OPS 11:14
DX: K21.9 Gastro-esophageal reflux disease without esophagitis (principal); Z01.812 Encounter for preprocedural laboratory examination

== ENCOUNTER 2018-05-07 13:41 | Observation (INO) | payer MEDICARE, OTHER ==
[~2018-05-07] VITALS: Ht 157.5 cm; Wt 72.7 kg
--- NOTE | ~2018-05-07 | EC ---
PATIENT:RIANNA MURRAY DATE OF SERVICE: 05/07/18 SEX: F MEDICAL RECORD: [id number] DATE OF : [birth year] LOCATION:D. D.120 AGE OF PATIENT: 68 ADMISSION DATE: 05/07/18 REFERRING PHYSICIAN: INTERPRETING PHYSICIAN: ELIZABETH HERNANDEZ MD ECHOCARDIOGRAM REPORT ECHO CHARGES 4 ECHO COMPLETE Date: 05/08/18 CLINICAL DIAGNOSIS: SYNCOPE/CAD ECHOCARDIOGRAPHIC MEASUREMENTS (adult normal given) AC root (d.<3.7cm) 3.4 cm LV Septum d (<1.2 cm> 1.3 cm Valve Excursion 2.1 cm LV Septum (systole) 2.0 cm Left Atria (s.<4.0cm> 3.5 cm LVPW d(<1.2cm) 1.2 cm RV (d.<2.3cm) 2.8 cm LVPW (sytole) 2.3 cm LV diastole(<5.6CM) 5.3 cm MV E-F(>70mm/sec) cm LV systole 2.2 cm LVOT Diameter 2.1 cm MV exc.(>10mm) cm Est.ejection fraction (50-75%) % DOPPLER: LVIT cm/sec A 84.0 cm/sec E 64.0 cm/sec LA cm/sec RVSP 46.0 mmHg LVOT 129 cm/sec AOP1/2T m/s Asc. Ao 146 cm/sec RVOT 87.0 cm/sec RA cm/sec PA 104 cm/sec AV Gradient Peak 8.5 mmHg AV Mean 4.2 mmHg AV Area 3.0 cm MV Gradient Peak 4.9 mmHg MV Mean 1.9 mmHg MV Area cm COMMENTS: Cooling Pipe Inspector: Andrey CHAVEZ Bag Patcher: 1 Dr. Hernandez TAPE# PACS Pericardial Effusion N DATE OF SERVICE: 05/08/2018 PROCEDURE: Echocardiogram. FINDINGS: 1. Left ventricular chamber size is within normal limits. Left ventricular systolic function is normal. Overall ejection fraction estimated at 65%. 2. Left atrium, right atrium, and right ventricle chamber sizes are within normal limits. 3. Valvular structures have normal structure and motion. ECHOCARDIOGRAM REPORT [id number] RIANNA MURRAY 4. Doppler interrogation reveals only trace mitral regurgitation, moderate tricuspid regurgitation, no other valvular insufficiency or stenosis. Pulmonary systolic pressure is estimated at 46 mmHg. 5. No evidence of pericardial effusion or left ventricular thrombus. TRANSINT:[id number] Voice Confirmation ID: [id number] DOCUMENT ID: [id number] ELIZABETH HERNANDEZ MD at 1457 CC: [id number] DICTATION DATE: 05/08/187 BLOW MOLDER: 05/08/18 1517 DIS IN 05/08/18 [place] [id number] [place] [id number]
--- NOTE | ~2018-05-07 | MORECARE ---
CASE MANAGEMENT DISCHARGE SUMMARY PATIENT: RIANNA MURRAY MARIELA UNIT: [id number] ADM DATE: 05/07/18 AGE: 68 : 51 SEX: F ROOM/BED: D.1204 AUTHOR: MICHELLE PONCE PHYSICIAN: REFERRING PHYSICIAN: ELANA LAWSON MD DATE OF SERVICE: 05/10/18 Discharge Plan Patient Name: RIANNA MURRAY Facility: [facility]:[place] : 1950 Planned Disposition: Home or Self Care Anticipated Discharge Date: 05/08/18 Discharge Date: 05/08/2018 Expected LOS: 1 Initial Reviewer: [email or web address] Initial Review Date: 05/10/2018 Generated: 05/10/18 11:10 am Patient Name: RIANNA MURRAY Page [phone] at 1010 All edits/amendments must be made on the electronic document DICTATION DATE: 05/10/18 1010 LUBRICATION TECHNICIAN: JEREMIAH 05/10/18 1010 RPT#: [id number] DC DATE:05/08/18 STATUS: DIS IN [facility] [address] [place] [address] END OF REPORT
[2018-05-07 14:52] LABS: BASOPHILS 0.2 % (0-2); EOSINOPHILS 1.2 % (0-7); HEMATOCRIT 37.5 % (36.0-48.0); HEMOGLOBIN 12.5 g/dL (12-16); IMMATURE GRANULOCYTES 0.2 % (0-5); LYMPHOCYTES 13.9 % (15-50); MCH 30.1 pg (26.0-34.0); MCHC 33.3 g/dL (31.0-37.0); MCV 90.4 fL (80.0-100.0); MEAN PLATELET VOLUME 8.9 fL (7.4-10.4); MONOCYTES 7.3 % (2-11); NEUTROPHILS 77.2 % (40-80); PLATELET COUNT 306 10x3/uL (130-400); RBC 4.15 10x6/uL (4.00-5.40); RDW 13.8 % (11.5-14.5); WBC 9.1 10x3/uL (4.8-10.8)
[2018-05-07 15:04] LABS: APPEARANCE CLEAR (CLEAR); BILIRUBIN NEGATIVE (NEGATIVE); COLOR YELLOW (YELLOW); GLUCOSE NEGATIVE (NEGATIVE); KETONE NEGATIVE (NEGATIVE); NITRITE NEGATIVE (NEGATIVE); PROTEIN 1+ mg/dL (NEGATIVE); UROBILINOGEN NORMAL (NORMAL)
[2018-05-07 15:05] LABS: BACTERIA MODERATE /hpf (NONE SEEN); EPITHELIAL CELLS 0-5 /hpf (0-5); HYALINE CAST 0-5 /lpf (NONE SEEN); RED CELLS - URINE 0-5 /hpf (0-5)
[2018-05-07 15:15] LABS: ALBUMIN 3.5 g/dL (3.4-5.0); ALKALINE PHOSPHATASE 88 U/L (46-116); ALT (SGPT) 24 U/L (10-68); BILIRUBIN - TOTAL 0.15 mg/dL (0.2-1.3); CALC OSMOLALITY 267 mosm/kg (275-300); CALCIUM 9.2 mg/dL (8.5-10.1); CARBON DIOXIDE 28.1 mmol/L (21.0-32.0); CHLORIDE - SERUM 95 mmol/L (98-107); CREATININE - SERUM 1.5 mg/dL (0.6-1.3); GLUCOSE 108 mg/dL (74-106); POTASSIUM - SERUM 3.3 mmol/L (3.5-5.1); PROTEIN - SERUM 7.5 g/dL (6.4-8.2); SODIUM 132 mmol/L (136-145); UREA NITROGEN 18 mg/dL (7-18); eGFR NON AFRICAN AMERICAN 37 mL/min (90-120)
[2018-05-07 15:24] LABS: AMYLASE - SERUM 40 U/L (25-115); CREATINE KINASE 59 UL (21-215); LIPASE 142 U/L (73-393); TROPONIN-I < 0.017 ng/mL (0.000-0.060)
[2018-05-07 16:16] VITALS: BP 102/60
[2018-05-07 18:00] VITALS: BP 113/66
[2018-05-07 18:02] VITALS: BP 102/65
[2018-05-07 21:05] VITALS: BP 137/72; Ht 157.5 cm; Wt 72.7 kg
[2018-05-08 00:30] VITALS: BP 134/81
[2018-05-08 04:00] VITALS: BP 136/80
[2018-05-08 06:52] LABS: BASOPHILS 0.3 % (0-2); EOSINOPHILS 0.9 % (0-7); HEMATOCRIT 32.7 % (36.0-48.0); HEMOGLOBIN 10.8 g/dL (12-16); LYMPHOCYTES 21.7 % (15-50); MCH 29.6 pg (26.0-34.0); MCV 89.6 fL (80.0-100.0); MEAN PLATELET VOLUME 8.8 fL (7.4-10.4); MONOCYTES 8.2 % (2-11); NEUTROPHILS 68.9 % (40-80); PLATELET COUNT 274 10x3/uL (130-400); RBC 3.65 10x6/uL (4.00-5.40); RDW 13.6 % (11.5-14.5)
[2018-05-08 06:55] LABS: WBC 6.7 10x3/uL (4.8-10.8)
[2018-05-08 07:15] LABS: ALKALINE PHOSPHATASE 76 U/L (46-116); ALT (SGPT) 25 U/L (10-68); BILIRUBIN - TOTAL 0.21 mg/dL (0.2-1.3); CALCIUM 8.8 mg/dL (8.5-10.1); CARBON DIOXIDE 28.4 mmol/L (21.0-32.0); CHLORIDE - SERUM 100 mmol/L (98-107); GLUCOSE 88 mg/dL (74-106); PROTEIN - SERUM 6.5 g/dL (6.4-8.2); SODIUM 136 mmol/L (136-145)
[2018-05-08 07:17] LABS: CALC OSMOLALITY 269 mosm/kg (275-300); CREATININE - SERUM 0.8 mg/dL (0.6-1.3); POTASSIUM - SERUM 3.8 mmol/L (3.5-5.1); UREA NITROGEN 11 mg/dL (7-18); eGFR NON AFRICAN AMERICAN 76 mL/min (90-120)
[2018-05-08 08:47] VITALS: BP 139/75
[2018-05-08 11:28] VITALS: BP 150/76
[2018-05-08 12:07] VITALS: BP 139/81
[2018-05-08 15:14] VITALS: BP 128/83
== END 2018-05-08 18:25 | disposition home or self-care (01) ==
LOC: D.ER 13:41 → OBSVTIME 18:09 → D.EDHOLD 18:09 → D.M3 18:09
PROVIDERS: Family Medicine
DX: R55 Syncope and collapse (principal); I25.10 Atherosclerotic heart disease of native coronary artery without angina pectoris; I10 Essential (primary) hypertension; N28.9 Disorder of kidney and ureter, unspecified; E87.6 Hypokalemia; D64.9 Anemia, unspecified; K44.9 Diaphragmatic hernia without obstruction or gangrene; I44.7 Left bundle-branch block, unspecified; K21.9 Gastro-esophageal reflux disease without esophagitis; J44.9 Chronic obstructive pulmonary disease, unspecified; I95.9 Hypotension, unspecified

== ENCOUNTER 2018-05-23 08:00 | Day surgery (SDC) | payer MEDICARE, OTHER ==
[2018-05-22 11:43] LABS: BASOPHILS 0.3 % (0-2); EOSINOPHILS 1.7 % (0-7); HEMATOCRIT 35.3 % (36.0-48.0); HEMOGLOBIN 11.7 g/dL (12-16); IMMATURE GRANULOCYTES 0.1 % (0-5); LYMPHOCYTES 23.1 % (15-50); MCHC 33.1 g/dL (31.0-37.0); MCV 90.5 fL (80.0-100.0); MEAN PLATELET VOLUME 8.8 fL (7.4-10.4); MONOCYTES 8.7 % (2-11); NEUTROPHILS 66.1 % (40-80); PLATELET COUNT 287 10x3/uL (130-400); RDW 13.8 % (11.5-14.5); WBC 7.8 10x3/uL (4.8-10.8)
[2018-05-22 11:56] LABS: ANION GAP 13.9 mmol/L (8-16); CALCIUM 9.4 mg/dL (8.5-10.1); CARBON DIOXIDE 30.7 mmol/L (21.0-32.0); CREATININE - SERUM 0.9 mg/dL (0.6-1.3); POTASSIUM - SERUM 3.6 mmol/L (3.5-5.1)
[~2018-05-23] VITALS: Ht 160 cm; Wt 72.6 kg
[~2018-05-23 08:00] MED LIST changes: +CENTRUM SILVER1 EAC3 PO; +MUSSINEX PO; -NORVASC10 MG PO; +NORVASC5 MG PO
[2018-05-23 09:26] VITALS: BP 126/76; BMI 28.4
[2018-05-23 13:03] VITALS: BP 111/82
--- NOTE | 2018-05-23 13:19 | NUR ---
PT ORIENTED TO ROOM CL IN REACH
[2018-05-23 14:32] VITALS: BMI 28.4
[2018-05-23 19:00] VITALS: BP 100/81
--- NOTE | 2018-05-23 19:00 | NUR ---
PT AAOX4 WHEN ENTERING ROOM. LEFT WRIST IV PATENT AND INFUSING. PT ABDOMEN HAS 5 LAP SITES WITH 3 BANDAIDS COVERING AND LIGHT EXUDATE NOTED. NC 2L, CONTINUOUS O2 MONITORING. CALL LIGHT IN REACH.
[2018-05-24 01:26] VITALS: BP 116/79
--- NOTE | 2018-05-24 04:21 | NUR ---
EYES CLOSED RESPIRATIONS WITH EASE AND UNLABORED. SR UP X2 CALL LIGHT WITHIN REACH.
[2018-05-24 05:01] VITALS: BP 127/72
[2018-05-24 05:04] LABS: BASOPHILS 0 % (0-2); EOSINOPHILS 0 % (0-7); HEMATOCRIT 30.9 % (36.0-48.0); IMMATURE GRANULOCYTES 0.1 % (0-5); LYMPHOCYTES 11.9 % (15-50); MCH 29.8 pg (26.0-34.0); MCHC 32.4 g/dL (31.0-37.0); MEAN PLATELET VOLUME 8.9 fL (7.4-10.4); MONOCYTES 9.8 % (2-11); NEUTROPHILS 78.2 % (40-80); PLATELET COUNT 287 10x3/uL (130-400); RBC 3.36 10x6/uL (4.00-5.40); RDW 14.2 % (11.5-14.5); WBC 8.3 10x3/uL (4.8-10.8)
[2018-05-24 05:27] LABS: ANION GAP 14.6 mmol/L (8-16); BILIRUBIN - TOTAL 0.28 mg/dL (0.2-1.3); CALCIUM 8.9 mg/dL (8.5-10.1); CARBON DIOXIDE 24.6 mmol/L (21.0-32.0); CREATININE - SERUM 0.9 mg/dL (0.6-1.3); MAGNESIUM - SERUM 1.4 mg/dL (1.8-2.4); PROTEIN - SERUM 6.5 g/dL (6.4-8.2)
[2018-05-24 05:36] LABS: POTASSIUM - SERUM 4.2 mmol/L (3.5-5.1)
--- NOTE | 2018-05-24 06:15 | NUR ---
PT HAS NOT VOIDED ALL NIGHT. SPOKE WITH DR SALOMON AND HE INSTRUCTED TO BLADDER SCAN AND IN AND OUT CATH IF OVER 400.
--- NOTE | 2018-05-24 06:33 | NUR ---
BLADDER SCAN PERFORMED. SEVERAL TIMES SCANNED AND READ 394. WILL PASS TO DAY SHIFT TO FOLLOW DR. FAIR INSTRUCTIONS.
[2018-05-24 08:35] VITALS: BP 108/75
[2018-05-24 12:00] VITALS: BP 115/89
--- NOTE | 2018-05-24 12:45 | NUR ---
PATIENT RESTING IN BED WITH EYES CLOSED, RESPIRATIONS REGULAR AND NONLABORED, 02 LPM, IV PATENT, CL IN REACH, FAMILY MEMBER AT BEDSIDE
[2018-05-24 14:51] VITALS: Ht 160 cm; Wt 72.6 kg
[2018-05-24] MEDS ORDERED: NORCO 10-325 TA1 TAB PO (15:05)
[2018-05-24] MEDS ORDERED: REGLAN10 MG PO (15:06)
[2018-05-24 16:00] VITALS: BP 131/69
--- NOTE | 2018-05-24 17:10 | NUR ---
IV DC WITH CATH INTACT, DC INSTRCUTIONS GIVEN PT VERABLIZES UNDERSTANDING, LEFT VIA WHEELCHAIR VIA HOSPTIAL STAFF VIA PRIVATE VECHILE IN STABLE CONDITON
--- NOTE | 2018-05-30 11:56 | OP ---
PATIENT NAME: RIANNA MURRAY MEDICAL RECORD: [id number] :52 LOCATION:D.OPS ADMISSION DATE: SURGEON: YONAS SALOMON MD DATE OF OPERATION: 05/23/2018 PREOPERATIVE DIAGNOSES: 1. GERD. 2. Paraesophageal hernia. 3. Hypertension. 4. COPD. 5. Chronic kidney disease. POSTOPERATIVE DIAGNOSES: 1. GERD. 2. Paraesophageal hernia. 3. Hypertension. 4. COPD. 5. Chronic kidney disease. PROCEDURE: Laparoscopic paraesophageal hernia repair with Willow fundoplication. SURGEON: Yonas Salomon MD STEWARD/STEWARDESS WINE: Lizbeth Huntley APRN REPORT OF PROCEDURE: The patient's abdomen was prepped and draped in sterile fashion. A Veress needle was inserted in the left upper quadrant and the abdomen was insufflated. The 11-mm Visiport trocar was inserted in the midline just above the umbilicus. We could see the Veress needle and there was no sign of any injury to bowel or surrounding structures, so this was removed. An 11-mm Visiport trocar was then inserted in the left subcostal region, a 5-mm trocar was placed in the epigastrium, a 5-mm trocar was placed in the left lateral abdomen, and a final 5-mm trocar was placed in the right lateral subcostal region. A liver retractor was inserted and the left lobe of the liver was elevated. At this point, we could see the patient had a moderate-sized hiatal hernia with the proximal third of the stomach sticking up into the thoracic cavity. We pulled this down and it would fall easily into the abdominal cavity, but with release, it would go back up into the chest. We began our dissection on the lesser omentum using Harmonic scalpel. This was used to take down all of the adhesions present. 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 We eventually performed our dissection of the right side of the right robert freeing up any of the adhesions present to this and extending up into the thoracic cavity. We went as far anteriorly and posteriorly as possible. We then approached the greater curvature of the stomach and took down the short gastric using Harmonic scalpel up to the left side of the right robert. We again completely dissected off the attachments from the esophagus. At this point, we had a 360-degree inspection of the esophagus. The esophageal hiatus was quite large. We eventually reapproximated this using multiple interrupted 0 Polydeks times 3. There was good approximation of the tissue with this. We then performed a 360-degree posterior wrap of the fundus of the stomach around the distal esophagus. This was done with interrupted 0 Polydeks times 3 with the top and the bottom suture incorporating a bite of the esophagus. The wrap appeared to be in good position and did not appear to be too tight. The stomach and distal OPERATIVE REPORT [id number] RIANNA MURRAY portion of the esophagus easily rested in the abdominal cavity. At this point, we irrigated out the abdomen and assured there was no sign of any bleeding. The liver retractor was removed. The 11-mm trocar site fascias were then closed with 0 Vicryl using a Jorge-Talha suture passer device. The ports and insufflation were then removed. The skin incisions were infused with a total of 10 mL of 0.25% Marcaine with epinephrine and then closed with subcutaneous 5-0 Monocryl. COMPLICATIONS: None. CONDITION: Stable. ANESTHESIA: General endotracheal and local. BLOOD LOSS: Minimal. TRANSINT:[id number] Voice Confirmation ID: [id number] DOCUMENT ID: [id number] YONAS SALOMON MD at 1156 CC: DORIAN YEN and ASHLEY LEDEZMA DO [id number] DICTATION DATE: 05/23/18 1158 CAMPAIGN MARKETING MANAGER: 05/23/18 1210 [facility] 05/24/18 [place] [id number] [place] [address]
== END 2018-05-24 17:11 | disposition home or self-care (01) ==
LOC: D.OPS 08:00 → D.MS 08:00 → D.PAN 08:00 → D.OPS 10:00 → D.MS 12:35 → D.OPS 05-24 17:11
PROVIDERS: Family Medicine; Surgery
DX: K21.9 Gastro-esophageal reflux disease without esophagitis (principal); K44.9 Diaphragmatic hernia without obstruction or gangrene; I12.9 Hypertensive chronic kidney disease with stage 1 through stage 4 chronic kidney disease, or unspecified chronic kidney disease; N18.9 Chronic kidney disease, unspecified; J44.9 Chronic obstructive pulmonary disease, unspecified; Z01.812 Encounter for preprocedural laboratory examination

== ENCOUNTER 2018-05-26 07:34 | Inpatient (IN) | payer MEDICARE, OTHER ==
[~2018-05-26] VITALS: Ht 160 cm; Wt 72.7 kg
[~2018-05-26 07:34] MED LIST changes: +NORCO 10-325 TA1 TAB PO; +REGLAN10 MG PO
[2018-05-26 08:24] LABS: BASOPHILS 0.1 % (0-2); EOSINOPHILS 0.3 % (0-7); HEMATOCRIT 30.7 % (36.0-48.0); HEMOGLOBIN 10.2 g/dL (12-16); IMMATURE GRANULOCYTES 0.2 % (0-5); LYMPHOCYTES 12.7 % (15-50); MCH 29.7 pg (26.0-34.0); MCHC 33.2 g/dL (31.0-37.0); MCV 89.5 fL (80.0-100.0); MEAN PLATELET VOLUME 8.6 fL (7.4-10.4); NEUTROPHILS 76.7 % (40-80); RBC 3.43 10x6/uL (4.00-5.40); RDW 13.6 % (11.5-14.5); WBC 8.7 10x3/uL (4.8-10.8)
[2018-05-26 08:27] LABS: PLATELET COUNT 217 10x3/uL (130-400)
[2018-05-26 08:33] LABS: ALKALINE PHOSPHATASE 78 U/L (46-116); ALT (SGPT) 59 U/L (10-68); BILIRUBIN - TOTAL 0.48 mg/dL (0.2-1.3); CALC OSMOLALITY 277 mosm/kg (275-300); CALCIUM 8.8 mg/dL (8.5-10.1); CARBON DIOXIDE 27.7 mmol/L (21.0-32.0); CHLORIDE - SERUM 100 mmol/L (98-107); CREATININE - SERUM 0.7 mg/dL (0.6-1.3); GLUCOSE 87 mg/dL (74-106); POTASSIUM - SERUM 3.1 mmol/L (3.5-5.1); PROTEIN - SERUM 6.6 g/dL (6.4-8.2); SODIUM 139 mmol/L (136-145); UREA NITROGEN 15 mg/dL (7-18); eGFR NON AFRICAN AMERICAN 88 mL/min (90-120)
[2018-05-26 08:35] LABS: UDS - AMPHET NEGATIVE QUAL (NEGATIVE); UDS - BARB NEGATIVE QUAL (NEGATIVE); UDS - BENZO NEGATIVE QUAL (NEGATIVE); UDS - COCAINE NEGATIVE QUAL (NEGATIVE); UDS - OPIATE POSITIVE QUAL (NEGATIVE); UDS - PCP NEGATIVE QUAL (NEGATIVE); UDS - THC NEGATIVE QUAL (NEGATIVE)
[2018-05-26 08:40] LABS: AMORPHOUS SEDIMENT <1+ /lpf (NONE SEEN); APPEARANCE HAZY (CLEAR); BACTERIA FEW /hpf (NONE SEEN); BILIRUBIN NEGATIVE (NEGATIVE); COLOR YELLOW (YELLOW); GLUCOSE NEGATIVE (NEGATIVE); KETONE LARGE mg/dL (NEGATIVE); MUCUS >1+ /lpf (NONE SEEN); NITRITE NEGATIVE (NEGATIVE); PROTEIN 1+ mg/dL (NEGATIVE); SPECIFIC GRAVITY 1.015 (1.005-1.020); WHITE CELLS - URINE RARE /hpf (0-5)
[2018-05-26 08:40] LABS: APTT 24.5 SECONDS (22.8-39.4); INR 1.06 (0.85-1.17); PROTIME 13.3 SECONDS (11.6-15.0)
[2018-05-26 08:44] LABS: CKMB 5.7 U/L (0.0-3.6); CREATINE KINASE 469 UL (21-215); MAGNESIUM - SERUM 1.5 mg/dL (1.8-2.4); TROPONIN-I < 0.017 ng/mL (0.000-0.060)
--- NOTE | 2018-05-26 12:29 | NUR ---
JESSICA [phone]
--- NOTE | 2018-05-26 12:45 | NUR ---
PT TO ROOM 2228 FROM ER VIA STRETCHER.ASSESSMENT PER FLOW SHEET.FALL PREVENTION IN PLACE WITH BECKY MAT
[2018-05-26 13:23] VITALS: BP 141/63; BMI 28.4
[2018-05-26 13:40] VITALS: Ht 160 cm; Wt 72.7 kg
--- NOTE | 2018-05-26 19:00 | NUR ---
PT ALERT AND CONFUSED WHEN ENTERING THE ROOM. PT ATTEMPTING TO GET OUT OF BED. PT COULD STATE NAME AND LOCATION BUT STATES YEAR "1949" AND STATES IT IS "". PT GROWING MORE AND MORE AGGITATED. EXPLAINED TO PT TO STAY IN BED. USE CALL LIGHT AND IT IS IN HAND. SIDE RAILS UP X 3. BECKY ALARM ON. NON SKID SOCKS ON. YELLOW GOWN ON.
--- NOTE | 2018-05-26 19:30 | NUR ---
FALL ALARM SOUNDING. PT DISROBING AND ATTEMPTING TO GET OUT OF BED. PT STILL CONFUSED AND GROWING MORE AGGITATED. PATIENT YELLING OUT "PRATIK CHRISTIE" STATES "HELP ME" I ASKED IF SHE IS IN PAIN AND SHE STATES "NO" THIS NURSE ASKS WHAT I CAN HELP HER WITH AND SHE STATES "I DONT KNOW!" ONCE AGAIN INSTRUCT PATIENT TO NOT GET OUT OF BED THAT SHE IS CAN FALL AND HURT HERSELF. PT SCREAMS "OKAY!" I ASKED PT TO VERBALIZE THIS UNDERSTANDING AND PT STATES "I WANT GET OUT OF THE DAMN BED!"
[2018-05-26 19:33] VITALS: BP 135/90
--- NOTE | 2018-05-26 19:56 | NUR ---
FALL ALARM SOUNDING. PT ATTEMPTING TO GET OUT OF BED AGAIN. COMPLETELY DISROBED. REDRESSED PT. REINSTRUCTED PT ON FALL RISKS. BECKY ON. ALL FALL PRECUATIONS IN PLACE.
--- NOTE | 2018-05-26 20:09 | NUR ---
CALLED PT SON. SPOKE WITH SON ABOUT PT ATTEMPTING TO GET OUT OF BED AND THE RISK FOR FALLS. PT SON STATED HE WOULD COME SIT WITH HER.
--- NOTE | 2018-05-26 20:42 | NUR ---
PT ATTEMPTING TO GET OUT OF BED AGAIN. ADVISED PT TO STAY IN BED. ALL PRECAUTIONS IN PLACE.
--- NOTE | 2018-05-26 21:29 | NUR ---
SON IN ROOM.
--- NOTE | 2018-05-27 02:57 | NUR ---
PT CONTINUALLY TRIES TO GET OUT OF BED AND CONTINUES TO YELL OUT EVEN WITH SON IN ROOM. FALL PRECAUTIONS REMAIN IN PLACE.
--- NOTE | 2018-05-27 03:04 | NUR ---
PT CONFUSED, RESTLESS. SON AT BEDSIDE TO ASSIST IN KEEPING HER FROM CLIMBING OUT OF BED. WILL CONTINUE POC.
--- NOTE | 2018-05-27 05:05 | NUR ---
PT DISROBING. REDRESSED PT.
[2018-05-27 06:32] LABS: BASOPHILS 0 % (0-2); EOSINOPHILS 0.5 % (0-7); HEMATOCRIT 29.1 % (36.0-48.0); HEMOGLOBIN 9.7 g/dL (12-16); IMMATURE GRANULOCYTES 0.1 % (0-5); LYMPHOCYTES 11.7 % (15-50); MCHC 33.3 g/dL (31.0-37.0); MCV 90.1 fL (80.0-100.0); MEAN PLATELET VOLUME 8.9 fL (7.4-10.4); MONOCYTES 7.7 % (2-11); PLATELET COUNT 252 10x3/uL (130-400); RBC 3.23 10x6/uL (4.00-5.40); RDW 13.6 % (11.5-14.5); WBC 8.3 10x3/uL (4.8-10.8)
--- NOTE | 2018-05-27 06:51 | NUR ---
PT CONTINUED TO YELL AND ATTEMPT TO GET OUT OF BED BUT WAS ABLE TO USE CALL LIGHT AND STATE WHEN NEEDED TO VOID AND REFUSED TO USE BED COX X 3 AND BEGGED THIS NURSE TO LET HER GO TO THE BATHROOM ON THE TOILET. NURSE CHARGE RN AND THIS NURSE ASSISTED PT TO GETTING TO TOILET WHERE PT WAS ALERT AND ABLE TO URINATE AND WIPE WITH NO ISSUES. RETURNED PT BACK TO BED SAFELY. PT DISROBED BEFORE THIS NURSE COULD LEAVE THE ROOM. REDRESSED PT.
--- NOTE | 2018-05-27 08:11 | NUR ---
LAYING ON LEFT SIDE, AWAKE, DISORIENTED X3. IV IN LEFT ARM SALINE LOCKED, FALL PRECAUTIONS IN PLACE, DENIES ANY NEEDS, BED LOWERED AND LOCKED, CALL LIGHT WITHIN REACH. CPOC
[2018-05-27 09:00] VITALS: BP 154/81
[2018-05-27 10:59] LABS: BASOPHILS 0.1 % (0-2); EOSINOPHILS 0.4 % (0-7); HEMATOCRIT 28.9 % (36.0-48.0); HEMOGLOBIN 9.8 g/dL (12-16); IMMATURE GRANULOCYTES 0.3 % (0-5); LYMPHOCYTES 13.5 % (15-50); MCHC 33.9 g/dL (31.0-37.0); MCV 88.4 fL (80.0-100.0); MEAN PLATELET VOLUME 8.7 fL (7.4-10.4); MONOCYTES 10.3 % (2-11); NEUTROPHILS 75.4 % (40-80); PLATELET COUNT 252 10x3/uL (130-400); RBC 3.27 10x6/uL (4.00-5.40); RDW 13.4 % (11.5-14.5)
--- NOTE | 2018-05-27 11:17 | NUR ---
observed pt physically pulling hair out of head, oriented times 2 at current time, able to get up and take self to restroom with assistance, IV fluids restarted per order in left AC, iv patent, left hand show some edema as well as reddened area and warm to touch, used marker to identify edges to see if redness continues to spread. pt voided in toilet x1. denies any other current needs, bed lowered and locked, call light within reach. cpoc
[2018-05-27 11:19] LABS: ALBUMIN 2.9 g/dL (3.4-5.0); ALKALINE PHOSPHATASE 79 U/L (46-116); ALT (SGPT) 58 U/L (10-68); BILIRUBIN - TOTAL 0.49 mg/dL (0.2-1.3); CALC OSMOLALITY 276 mosm/kg (275-300); CALCIUM 8.9 mg/dL (8.5-10.1); CARBON DIOXIDE 23.8 mmol/L (21.0-32.0); CHLORIDE - SERUM 101 mmol/L (98-107); CREATININE - SERUM 0.6 mg/dL (0.6-1.3); GLUCOSE 78 mg/dL (74-106); POTASSIUM - SERUM 3.8 mmol/L (3.5-5.1); PROTEIN - SERUM 6.5 g/dL (6.4-8.2); SODIUM 139 mmol/L (136-145); UREA NITROGEN 12 mg/dL (7-18); eGFR NON AFRICAN AMERICAN > 90 mL/min (90-120)
[2018-05-27 12:00] VITALS: BP 120/87
--- NOTE | 2018-05-27 14:53 | NUR ---
IV INFILTRATED IN RIGHT AC, EDEMA OF LOWER ARM AND AROUND INSERTION SITE, DISCONTINUED. CATHETER TIP INTACT. DENIES ANY OTHER NEEDS OR DISCOMFORTS, BED LOWERED AND LOCKED, CALL LIGHT WITHIN REACH, CPOC
[2018-05-27 16:00] VITALS: BP 166/95
--- NOTE | 2018-05-27 18:23 | NUR ---
CONTINUES TO GET OUT OF BED BYSELF, DISORIENTED TO PLACE, TIME, AND SITUATION. AMBULATED 25 FEET OUTSIDE OF ROOM, IV IN LEFT AC, PATENT, INFUSING FLUIDS, C/O PAIN LEVEL 10/10 ADMINISTERED PO PAIN MEDICATION, DENIES ANY OTHER NEEDS OR DISCOMFORTS, BED ALARM ON, CALL LIGHT WITHIN REACH. CPOC
--- NOTE | 2018-05-27 19:00 | NUR ---
PT IN BED RESTING QUIETLY WITH EYES CLOSED. ALERT AND ORIENTED X4. RESPIRATIONS EVEN AND UNLABORED. VS STABLE AND AFEBRILE. NO VISUAL CUES OF DISTRESS NOTED. DENIES ANY OTHER NEEDS AT THIS TIME. BED LOW, SIDE RAILS UP X2. CALL LIGHT IN REACH. WILL CONTINUE TO MONITOR.
--- NOTE | 2018-05-27 19:36 | NUR ---
fALL RISK WITH PRECATIONS NOTED. IV LEFT A/C SL. ENCOURAGED TO USE CALL LIGHT FOR ASSIST.
[2018-05-27 20:04] VITALS: BP 143/75
[2018-05-28 00:35] VITALS: BP 138/80
[2018-05-28 04:59] VITALS: BP 162/80
[2018-05-28 07:06] LABS: BASOPHILS 0.3 % (0-2); HEMATOCRIT 33.3 % (36.0-48.0); LYMPHOCYTES 14.8 % (15-50); MEAN PLATELET VOLUME 9.3 fL (7.4-10.4); MONOCYTES 13.1 % (2-11); NEUTROPHILS 69.8 % (40-80); PLATELET COUNT 283 10x3/uL (130-400); RBC 3.67 10x6/uL (4.00-5.40); RDW 13.8 % (11.5-14.5); WBC 7.4 10x3/uL (4.8-10.8)
[2018-05-28 07:21] LABS: MCV 90.7 fL (80.0-100.0)
--- NOTE | 2018-05-28 07:35 | NUR ---
PT RESTING IN BED, EYES CLOSED. RESPIRATIONS EVEN AND UNLABORED. PT C/O PAIN. GAVE NORCO FOR PAIN. PT KEEPS GETTING UP OUT OF BED SETTING OFF BECKY ALARM. PT HIGH FALL RISK. PT CONFUSED. PT REFUSES TO KEEP SCDS ON. PT HAD HERNIA REPAIR LAST WEEK, LAP SITES ON ABDOMEN. IV TO RIGHT FOREARM, SITE PATENT WITHOUT REDNESS OR SWELLING. LR INFUSING @ 125ML/HR. PT DENIES ANYTHING FURTHER AT THIS TIME. CALL LIGHT IN REACH. BECKY ALARM ON AND WORKING. BED IN LOWEST POSITION. WILL CONTINUE TO MONITOR.
[2018-05-28 09:00] VITALS: BP 159/84
--- NOTE | 2018-05-28 10:00 | NUR ---
THIS NURSE HAS BEEN IN PT'S ROOM SEVERAL TIMES D/T PT GETTING UP WITHOUT ASSISTANCE. PT STATES SHE IS COLD. SUPPLY CHAIN ASSOCIATE BROUGHT PT EXTRA BLANKETS AND ASSISTED PT BACK TO BED. PT STILL CONFUSED, KEEPS GETTING OUT OF BED. BECKY ALARM ON AND WORKING. PT DENIES ANYTHING FURTHER AT THIS TIME. CALL LIGHT IN REACH. WILL CONTINUE TO MONITOR.
[2018-05-28 12:00] VITALS: BP 143/86
--- NOTE | 2018-05-28 14:21 | NUR ---
PT CONTINUES TO GET UP OUT OF BED WITHOUT ASSISTANCE. BECKY ALARM ON AND WORKING. NO C/O PAIN. NO S/S OF DISTRESS NOTED. PT CONFUSED. PT DENIES ANYTHING FURTHER AT THIS TIME. ALL FALL PRECAUTIONS IN PLACE. CALL LIGHT IN REACH. WILL CONTINUE TO MONITOR.
--- NOTE | 2018-05-28 15:43 | NUR ---
PT KEEPS GETTING UP OUT OF BED WITHOUT ASSISTANCE. FALL PRECAUTIONS IN PLACE. THIS NURSE, GAUGER DELIVERY, AND WORD PROCESSING MACHINE OPERATOR HAVE BEEN IN THE ROOM SEVERAL TIMES TO ASSIST PT BACK TO BED. BECKY ALARM IN PLACE, ON AND WORKING. BED IN LOWEST POSITION. CALL LIGHT IN REACH. PT DENIES ANYTHING FURTHER AT THIS TIME. WILL CONTINUE TO MONITOR.
--- NOTE | 2018-05-28 18:14 | NUR ---
PT KEEPS GETTING UP WITHOUT ASSISTANCE. THIS NURSE, TEXTILE COATING MACHINE OPERATOR, AND SENIOR CLINICAL DATA COORDINATOR HAVE ASSISTED PT TO BED. PT DENIES PAIN OR ANY NEEDS AT THIS TIME. PT VERY CONFUSED. FALL PRECAUTIONS IN PLACE. BECKY ALARM ON AND WORKING. BED IN LOWEST POSITION. CALL LIGHT IN REACH. WILL CONTINUE TO MONITOR.
--- NOTE | 2018-05-28 18:52 | NUR ---
PT C/O PAIN. GAVE NORCO FOR PAIN. NO S/S OF DISTRESS. FALL PRECAUTIONS IN PLACE. BECKY ON. PT DENIES ANYTHING FURTHER. CALL LIGHT IN REACH. WILL CONTINUE TO MONITOR.
--- NOTE | 2018-05-29 00:13 | NUR ---
PT CONFUSED. OOB 4 TIMES SINCE CAME ON SHIFT. GAVE SLEEP MEDICATION AND NORCO, DID NOT KEEP PT FROM GETTING UP. UNABLE TO MAINTAIN SAFTEY. CALLED DOC TO OBTAIN ORDER FOR BECKY BED. ORDER OBTAINED AND BED IN USE.
[2018-05-29 00:41] VITALS: BP 150/90
--- NOTE | 2018-05-29 03:42 | NUR ---
PT PULLED IV OUT. HAD ANOTHE SITE ON LT ARM WHICH IS NOW IN USE. WILL CONTINUE POC.
[2018-05-29 04:52] VITALS: BP 150/92
[2018-05-29 09:14] VITALS: BP 149/86
--- NOTE | 2018-05-29 10:31 | NUR ---
PATIENT IN BECKY BED, SKIN W/D TO TOUCH, COLOR PINK, RESP. REGULAR AND EVEN AT 18. IV LAC INFUSING WITHOUT DIFFICULTY. PATIENT VERY CONFUSED SON WAS HERE AT 0900 AND ANSWERED QUESTIONS.
--- NOTE | 2018-05-29 11:12 | NUR ---
PATIENT IN BECKY BED RESTING WITH EYES CLOSED. RESPIRATIONS EVEN AND UNLABORED WITH IVF INFUSING AT PRESCRIBED RATE.
[2018-05-29 11:21] LABS: BASOPHILS 0.3 % (0-2); EOSINOPHILS 3.1 % (0-7); HEMATOCRIT 32.4 % (36.0-48.0); HEMOGLOBIN 10.9 g/dL (12-16); IMMATURE GRANULOCYTES 0.1 % (0-5); LYMPHOCYTES 14.3 % (15-50); MCH 30.1 pg (26.0-34.0); MCHC 33.6 g/dL (31.0-37.0); MCV 89.5 fL (80.0-100.0); MEAN PLATELET VOLUME 8.9 fL (7.4-10.4); MONOCYTES 14.7 % (2-11); NEUTROPHILS 67.5 % (40-80); PLATELET COUNT 308 10x3/uL (130-400); RBC 3.62 10x6/uL (4.00-5.40); RDW 13.4 % (11.5-14.5); WBC 7.8 10x3/uL (4.8-10.8)
[2018-05-29 11:45] LABS: ALKALINE PHOSPHATASE 83 U/L (46-116); ALT (SGPT) 48 U/L (10-68); BILIRUBIN - TOTAL 0.45 mg/dL (0.2-1.3); CALC OSMOLALITY 262 mosm/kg (275-300); CALCIUM 9.1 mg/dL (8.5-10.1); CARBON DIOXIDE 23.4 mmol/L (21.0-32.0); CHLORIDE - SERUM 97 mmol/L (98-107); CREATININE - SERUM 0.5 mg/dL (0.6-1.3); GLUCOSE 71 mg/dL (74-106); POTASSIUM - SERUM 3.7 mmol/L (3.5-5.1); SODIUM 133 mmol/L (136-145); UREA NITROGEN 10 mg/dL (7-18); eGFR NON AFRICAN AMERICAN > 90 mL/min (90-120)
[2018-05-29 12:00] VITALS: BP 149/69
--- NOTE | 2018-05-29 13:32 | NUR ---
PATIENT RESTING ON KNEES AND ELBOWS IN BECKY BED WITHOUT DISTRESS AND IVF INFUSING AT RPESCRIBED RATE. NO DISTRESS NOTED.
--- NOTE | 2018-05-29 15:22 | NUR ---
PATIENT REMAINS IN BECKY BED BATH GIVEN EARLIER. PATIENT DENIES ANY C/O PAIN OR DISCOMFORT WHEN ASKED. CONT. TO MONITOR.
--- NOTE | 2018-05-29 16:16 | NUR ---
AWAKE AND CONFUSED. RESIDENT NOT AT RISK FOR INJURY TO SELF AT THIS TIME. IVF INFUSING AT PRESCRIBED RATE.
--- NOTE | 2018-05-29 17:17 | NUR ---
PATIENT IN BECKY BED, SKIN W/D TO TOUCH, COLOR PINK, RESP. REGULAR AND EVEN AT 18. PATIENT KEEPS STRIPPING GOWN OFF, REDRESSED, PATIENT DENIED ANY C/O PAIN WHEN ASKED. CONTINUE TO MONITOR.
--- NOTE | 2018-05-29 17:56 | NUR ---
PT. UNCOOPERATIVE AND REFUSES TO PUT GOWN ON. IVF INFUSING AT PREESCRIBED RATE. STABLE AT THIS TIME
[2018-05-29 21:52] VITALS: BP 115/66
--- NOTE | 2018-05-30 01:36 | NUR ---
SLEEPING ON LEFT SIDE NO S/S OF DISTRESS RESP EVEN AND UNLABORED.
[2018-05-30 04:50] VITALS: BP 134/74
--- NOTE | 2018-05-30 08:00 | NUR ---
PT CONFUSED TO PLACE, TIME, AND SITUATION AT THIS TIME. RESP EVEN AND NONLABORED PT DENIES NEEDS AT THIS TIME PT IN BECKY BED AT THIS TIME WILL CONTINUE TO MONITOR
[2018-05-30 08:33] VITALS: BP 132/79
--- NOTE | 2018-05-30 10:57 | MORECARE ---
CASE MANAGEMENT DISCHARGE SUMMARY PATIENT: RIANNA MURRAY MARIELA UNIT: [id number] ADM DATE: 05/26/18 AGE: 68 : 51 SEX: F ROOM/BED: D.2228 AUTHOR: MICHELLE PONCE PHYSICIAN: REFERRING PHYSICIAN: LISSETH GONSALEZ MD DATE OF SERVICE: 05/30/18 Discharge Plan Patient Name: RIANNA MURRAY [facility] [facility] 1950 Planned Disposition: Psych facility Anticipated Discharge Date: Discharge Date: Expected LOS: Initial Reviewer: [email or web address] Initial Review Date: 05/30/2018 Generated: 05/30/18 11:57 am Patient Name: RIANNA MURRAY Page [id number] at 1057 All edits/amendments must be made on the electronic document DICTATION DATE: 05/30/181056 BOOKSEAMER BLINDSTITCH: JEREMIAH 05/30/18 1057 RPT#: [id number] DC DATE: STATUS: ADM IN [facility] [address] [place] [address] END OF REPORT
--- NOTE | 2018-05-30 11:05 | MORECARE ---
CASE MANAGEMENT DISCHARGE SUMMARY PATIENT: RIANNA MURRAY MARIELA UNIT: [id number] ADM DATE: 05/26/18 AGE: 68 : 52 SEX: F ROOM/BED: D.2228 AUTHOR: MICHELLE PONCE PHYSICIAN: REFERRING PHYSICIAN: LISSETH GONSALEZ MD DATE OF SERVICE: 05/30/18 Discharge Plan Patient Name: RIANNA MURRAY Facility: [facility]:[place] : 1950 Planned Disposition: Psych facility Anticipated Discharge Date: Discharge Date: Expected LOS: Initial Reviewer: [email or web address] Initial Review Date: 05/30/2018 Generated: 05/30/18 12:04 pm Comments DCP- Discharge Planning Updated by [email or web address]: Ora Huston on 05/30/18 10:[address] Patient Name: RIANNA MURRAY Admission Status: ER Accout number: [id number] Admission Date: 05-26-2018 : 1950 Admission Diagnosis: Attending: LISSETH GONSALEZ Current LOS: 4 Anticipated DC Date: Planned Disposition: Psych facility Primary Insurance: MEDICARE A & B Discharge Planning Comments: CM met with patient, she is confused and unable to answer questions. I called her son, Ed, for discharge planning. Ed states normally she is independent with ADL's and IADL's. States I remind her to take her medicine and take her to her doctor appointments. States she only uses her oxygen at night and she no longer uses her nebulizer. States she walks unaided. I informed of discharge order today to [facility] and he agrees with plan. I called Kristin in long term and she will be going to room 1120. human resources operations coordinator informed. CM will continue to follow and assist with discharge planning/needs. Passenger Brakeman: Ora Huston DCPIA - Discharge Planning Initial Assessment Updated by [email or web address]: Ora Huston on 05/30/18 10:58 am * Is the patient Alert and Oriented? Yes * Preadmission Environment Home with Family * ADLs Partial Dependent * Partial ADLs (Assistance needed) Medication Management * Equipment Nebulizer Oxygen Walker * List name and contact numbers for known caregivers / representatives who currently or will assist patient after discharge: Rush Murray - son - [phone] * Verbal permission to speak to the caregivers and representatives has been obtained from the patient. Yes * Community resources currently utilized None * Additional services required to return to the preadmission environment? Yes * Can the patient safely return to the preadmission environment? Yes * Has this patient been hospitalized within the prior 30 days at any hospital? Yes Coverage Notice Reviewer: [email or web address] Dionisio Huston Notice Issued Date-Time: 05/30/2018 11:02 Notice Type: IM Discharge Notice Notice Delivered To: Family Member Relationship to Patient: Son P D Driver Name: Rush Murray Delivery Method: PHONE - Phone Neelam Days: Prior Verbal Notification: Recipient Understood Notice: Yes Recipient Signature: Med Rec Note Co-signed by Attending: Coverage Notice Comment: IMM explained, voiced understanding. Son agrees with discharge. Last DP export: 05/30/18 9:57 a Patient Name: RIANNA MURRAY Page [phone] at 1105 All edits/amendments must be made on the electronic document DICTATION DATE: 05/30/181103 HAND MEAT SALTER: JEREMIAH 05/30/181103 RPT#: [id number] DC DATE: STATUS: ADM IN [facility] [address] [place] [address] END OF REPORT
--- NOTE | 2018-05-30 12:03 | NUR ---
PT REPORT GIVEN TO [place] IN [facility] AT THIS TIME
--- NOTE | 2018-05-30 12:29 | NUR ---
PT TAKEN VIA WHEELCHAIR TO [facility] AT THIS TIME
--- NOTE | 2018-05-30 15:11 | CN ---
PATIENT NAME:RIANNA MURRAY MEDICAL RECORD: [id number] : 52 LOCATION:D.MS Galvan2228 ADMIT DATE: 05/26/18 ACCOUNT: [id number] CONSULTING PHYSICIAN: OLESYA ERVIN MD REFERRING PHYSICIAN: LISSETH GONSALEZ MD DATE OF CONSULTATION: 05/29/2018 IDENTIFYING DATA: The patient is 68 years old and she was admitted to the hospital on a voluntary basis. CHIEF COMPLAINT: Confusion. HISTORY OF PRESENT ILLNESS: The patient presented to the Emergency Room 3 days ago. At that time, she was exhibiting confusion. She is not able to give much in the way of rational history in fact she is currently in a bed restraint system that puts the patient in a four-sided mesh box. She is rambling and incoherent, not making any sense, not oriented, not able to give any information. There is no family here. Records indicate that she presented to the Emergency Room this way. She is clearly severely impaired. PAST MEDICAL HISTORY: Significant for hypertension, coronary artery disease, COPD, and at this time, the patient has a dilated common bile duct. I am not sure if that is going to be addressed surgically. She is not able to answer questions in any reliable or appropriate way and is only oriented to person. MENTAL STATUS EXAMINATION: The patient is awake, alert and oriented to person only. Her mood is anxious. Her affect is labile. Memory, concentration, and abstraction abilities are severely impaired and she is not exhibiting any thoughts of harming herself or others. She is clearly responding to persons or people not present. ASSESSMENT: 1. Delirium, cause unknown. 2. Rule out chronic mental illness, substance abuse, and/or dementia or some combination of all of the above. PLAN: At this time, I am going to prescribe a scheduled dose of Geodon at an amount of 20 mg twice daily and then on a p.r.n. basis. If medically stabilized, I would recommend she be transferred to the behavioral unit for additional treatment and evaluation. TRANSINT:[id number] Voice Confirmation ID: [id number] DOCUMENT ID: [id number] OLESYA ERVIN MD at 1511 CC: [id number] DICTATION DATE: 05/29/18 174 BELLMAN: 05/29/182152 DIS IN 05/30/18 [facility] [address] [place] [address]
--- NOTE | 2018-05-31 09:14 | MORECARE ---
CASE MANAGEMENT DISCHARGE SUMMARY PATIENT: RIANNA MURRAY MARIELA UNIT: [id number] ADM DATE: 05/26/18 AGE: 68 : 51 SEX: F ROOM/BED: D.2228 AUTHOR: MICHELLE PONCE PHYSICIAN: REFERRING PHYSICIAN: LISSETH GONSALEZ MD DATE OF SERVICE: 05/31/18 Discharge Plan Patient Name: RIANNA MURRAY Facility: [facility]:[place] : 1950 Planned Disposition: Psych facility Anticipated Discharge Date: Discharge Date: 05/30/2018 Expected LOS: 0 Initial Reviewer: [email or web address] Initial Review Date: 05/30/2018 Generated: 05/31/18 10:14 am Comments DCP- Discharge Planning Updated by [email or web address]: Ora Huston on 05/30/18 10:[address] Patient Name: RIANNA MURRAY Admission Status: ER Accout number: [id number] Admission Date: 05-26-2018 : 1950 Admission Diagnosis: Attending: LISSETH GONSALEZ Current LOS: 4 Anticipated DC Date: Planned Disposition: Psych facility Primary Insurance: MEDICARE A & B Discharge Planning Comments: CM met with patient, she is confused and unable to answer questions. I called her son, Ed, for discharge planning. Ed states normally she is independent with ADL's and IADL's. States I remind her to take her medicine and take her to her doctor appointments. States she only uses her oxygen at night and she no longer uses her nebulizer. States she walks unaided. I informed of discharge order today to fpc and he agrees with plan. I called Kristin in longterm and she will be going to room 1120. environmental coordinator informed. CM will continue to follow and assist with discharge planning/needs. Director Peoplesoft: Ora Huston DCPIA - Discharge Planning Initial Assessment Updated by [email or web address]: Ora Huston on 05/30/18 10:58 am * Is the patient Alert and Oriented? Yes * Preadmission Environment Home with Family * ADLs Partial Dependent * Partial ADLs (Assistance needed) Medication Management * Equipment Nebulizer Oxygen Walker * List name and contact numbers for known caregivers / representatives who currently or will assist patient after discharge: Rush Murray - son - [phone] * Verbal permission to speak to the caregivers and representatives has been obtained from the patient. Yes * Community resources currently utilized None * Additional services required to return to the preadmission environment? Yes * Can the patient safely return to the preadmission environment? Yes * Has this patient been hospitalized within the prior 30 days at any hospital? Yes Coverage Notice Reviewer: [id number] Dionisio Huston Notice Issued Date-Time: 05/30/2018 11:02 Notice Type: IM Discharge Notice Notice Delivered To: Family Member Relationship to Patient: Son Patient Support Representative Name: Rush Murray Delivery Method: PHONE - Phone Neelam Days: Prior Verbal Notification: Recipient Understood Notice: Yes Recipient Signature: Med Rec Note Co-signed by Attending: Coverage Notice Comment: IMM explained, voiced understanding. Son agrees with discharge. Last DP export: 05/30/18 10:04 a Patient Name: RIANNA MURRAY Page [id number] at 0914 All edits/amendments must be made on the electronic document DICTATION DATE: 05/31/18913 BEEHIVE KILN SUPERVISOR: JEREMIAH 05/31/18913 RPT#: [id number] DC DATE:05/30/18 STATUS: DIS IN [facility] [address] [place] [address] END OF REPORT
== END 2018-05-30 12:29 | disposition short-term general hospital (02) | DRG 93 ==
LOC: D.ER 07:34 → D.MS 10:19 → D.EDHOLD 10:19 → D.MS 11:47
PROVIDERS: Emergency Medicine; Family Medicine; ADMIT Family Medicine
DX: G92 Toxic encephalopathy (principal); T45.0X5A Adverse effect of antiallergic and antiemetic drugs, initial encounter; E86.0 Dehydration; I10 Essential (primary) hypertension; J44.9 Chronic obstructive pulmonary disease, unspecified; I25.10 Atherosclerotic heart disease of native coronary artery without angina pectoris; K21.9 Gastro-esophageal reflux disease without esophagitis; F32.9 Major depressive disorder, single episode, unspecified; F41.9 Anxiety disorder, unspecified; R41.0 Disorientation, unspecified; K83.8 Other specified diseases of biliary tract

== ENCOUNTER 2018-05-30 12:20 | Inpatient (IN) | payer MEDICARE, OTHER ==
[~2018-05-30] VITALS: Ht 160 cm; Wt 72.6 kg
--- NOTE | 2018-05-30 12:30 | NUR ---
RECEIVED TO [facility] UNIT ROOM 1120 VIA WHEELCHAIR FROM [facility]. DX: ALTERED MENTAL STATUS. SHE IS CONFUSED AND ORIENTED TO PERSON ONLY. SHE IS ABLE TO AMBULATE WITH ASSISTANCE. HER CODE STATUS IS DNR PER SON. [id number]. WILL CONTINUE TO MONITOR.
[2018-05-30 16:57] VITALS: BP 140/83; BMI 28.4
[2018-05-30 19:31] VITALS: BP 129/75
--- NOTE | 2018-05-30 22:42 | NUR ---
RECEIVED IN PATIENT ROOM. RESTING IN BED WITH EYES CLOSED. RESPONDS TO VOICE. CALM AND COOPERATIVE WITH CARE AND ASSESSMENT. CONFUSED. ENCOURAGE TO EXPRESS NEEDS. REDIRECT AND REORIENT NEEDED. RESTING IN BED WITH EYES CLOSED AT THIS TIME. CONTINUE PLAN OF CARE.
[2018-05-31 06:40] LABS: BASOPHILS 0.1 % (0-2); EOSINOPHILS 4.6 % (0-7); HEMATOCRIT 31.9 % (36.0-48.0); IMMATURE GRANULOCYTES 0.1 % (0-5); LYMPHOCYTES 16.3 % (15-50); MCHC 34.5 g/dL (31.0-37.0); MEAN PLATELET VOLUME 8.5 fL (7.4-10.4); MONOCYTES 12.8 % (2-11); NEUTROPHILS 66.1 % (40-80); PLATELET COUNT 335 10x3/uL (130-400); RBC 3.67 10x6/uL (4.00-5.40); RDW 13.7 % (11.5-14.5); WBC 6.8 10x3/uL (4.8-10.8)
[2018-05-31 06:55] LABS: MCV 86.9 fL (80.0-100.0)
[2018-05-31 07:24] LABS: ALBUMIN 3.2 g/dL (3.4-5.0); ALKALINE PHOSPHATASE 85 U/L (46-116); ALT (SGPT) 44 U/L (10-68); BILIRUBIN - TOTAL 0.41 mg/dL (0.2-1.3); CALC OSMOLALITY 271 mosm/kg (275-300); CALCIUM 9.3 mg/dL (8.5-10.1); CARBON DIOXIDE 23.5 mmol/L (21.0-32.0); CHLORIDE - SERUM 97 mmol/L (98-107); CHOL - HDL RATIO 4.9 ratio (2.3-4.1); CHOLESTEROL, TOTAL 176 mg/dL (0-200); CREATININE - SERUM 0.6 mg/dL (0.6-1.3); GLUCOSE 89 mg/dL (74-106); HDL CHOLESTEROL 36 mg/dL (32-96); LDL CHOLESTEROL 109 mg/dL (0-100); SODIUM 137 mmol/L (136-145); THYROID STIMULATING HORMONE 2.14 uIU/mL (0.36-3.74); TRIGLYCERIDE 157 mg/dL (30-200); UREA NITROGEN 10 mg/dL (7-18); eGFR NON AFRICAN AMERICAN > 90 mL/min (90-120)
[2018-05-31 07:26] LABS: POTASSIUM - SERUM 3.1 mmol/L (3.5-5.1)
--- NOTE | 2018-05-31 08:30 | NUR ---
RECEIVED IN HALLWAY AT NURSES DESK. WANDERING HALLS. CONFUSED. CALM AND COOPERATIVE WITH CARE AND ASSESSMENT. REDIRECT AND REORIENT NEEDED. PROVIDE PRESCRIBED MEDICATIONS. COMPLIANT WITH MEDICATIONS. ТАТЬЯНАMTINKAI POC.
[2018-05-31 09:27] VITALS: BP 146/82
[2018-05-31 10:40] VITALS: Ht 160 cm; Wt 72.6 kg
--- NOTE | 2018-05-31 11:08 | NUR ---
ZOFRAN 4 MG PO GIVEN FOR NAUSEA AND EMMESIS EARLIER THIS MORNING.
--- NOTE | 2018-05-31 16:07 | PSY ---
PATIENT NAME:RIANNA MURRAY MEDICAL RECORD: [id number] : 52 LOCATION:BAKARI Galvan1120 ADMISSION DATE: 05/30/18 ACCOUNT: [id number] PSYCHIATRIC EVALUATION DATE OF EVALUATION: 05/30/18 IDENTIFYING DATA: The patient is 68 years old and she is admitted to the hospital on a voluntary basis. CHIEF COMPLAINT: Confusion. HISTORY OF PRESENT ILLNESS: The patient presented to the hospital acutely confused. She has a history of depression, but she denies a history of substance abuse. She was quite agitated and impaired in the Emergency Room. At that time, she did not have a urine drug screen performed nor after she was admitted was one performed, but the patient says that she is not a drinker or user of drugs. She is clearly quite confused, having trouble concentrating, and not making much in the way of coherent trackable sense. She denies that she would seek to harm herself or others. She denies overt psychotic symptoms. PAST MEDICAL HISTORY: Significant for hypertension, coronary artery disease, and COPD. PAST PSYCHIATRIC HISTORY: Significant for major depression and some anxiety. FAMILY HISTORY: Noncontributory. ALLERGIES: METOCLOPRAMIDE. CURRENT MEDICATIONS: Include Celexa, aspirin, Norvasc, Claritin, Singulair, Neurontin, and Ventolin. SOCIAL HISTORY: The patient says that she is . She apparently does have a son and a daughter who are local, but I do not have information from them at this point. She denies history of drug or alcohol abuse. MENTAL STATUS EXAMINATION: The patient is adequately groomed. She is awake and alert. She is oriented to person only. Her thought processes are very disorganized. Memory, concentration, and abstraction abilities are not tested because of inability to perform the examination. She clearly is impaired in these realms. She does deny active auditory and visual hallucinations as well as any psychotic symptoms. ASSETS: Supportive family members. LIABILITIES: Limited insight. DIAGNOSTIC IMPRESSION: AXIS I: 1. Delirium, type uncertain. 2. Rule out dementia versus substance abuse versus chronic mental illness or some combination of the above. AXIS II: Deferred. AXIS III: Hypertension, coronary artery disease, COPD, acid reflux, and arthritis. AXIS IV: Moderate. AXIS V: Global assessment of functioning is 35. PLAN: At this time, the patient is admitted to the hospital secondary to confusion that is apparently acute in onset. At this point, the possible explanations of this are still being investigated and include a wide variety of possible explanations and even a combination of multiple factors causing this confusion. At this point, my goal is to keep her in a safe and supervised environment, review baseline laboratories, review observation from the staff that is with her, and obtain collateral information from the family. TRANSINT:[id number] Voice Confirmation ID: [id number] DOCUMENT ID: [id number] OLESYA ERVIN MD at 1607 CC: [id number] DICTATION DATE: 05/30/18 1606 BASEBALL SCOUT: 05/30/18 1702 ADM IN [facility] [address] [place] [id number]
--- NOTE | 2018-05-31 17:30 | NUR ---
HER SON CALLED FOR AN UPDATE ON STATUS. INFORMED HIM OF RAPHAEL EARLIER TODAY. HE TOLD THIS NURSE THAT SAID SHE WAS TO HAVE SOFT DIET WITH NO MEAT OR BREAD FOR 5 WEEKS POST OP. THEN SHE CAN HAVE FISH AND SOME MEATS. SHE WILL FEEL LIKE SHE IS CHOKING AT TIMES, DUE TO THE PROCEDURE THAT WAS DONE. TALKED WITH DR. MORENO AND DR. SOLER AND CHANGED HER DIET.
[2018-05-31 20:48] VITALS: BP 116/83; BP 126/77
[2018-06-01 06:18] LABS: VITAMIN D 25 HYDROXY 29.2 ng/mL (30.0-100.0)
[2018-06-01 07:19] LABS: ANION GAP 18.7 mmol/L (8-16); CALCIUM 9.9 mg/dL (8.5-10.1); CARBON DIOXIDE 25.1 mmol/L (21.0-32.0)
[2018-06-01 07:25] LABS: CREATININE - SERUM 0.9 mg/dL (0.6-1.3); POTASSIUM - SERUM 3.8 mmol/L (3.5-5.1)
[2018-06-01 07:36] LABS: RAPID PLASMA REAGIN Non Reactive (Non Reactive)
[2018-06-01 09:19] LABS: FOLATE (FOLIC ACID) - SERUM >20.0 ng/mL (>3.0)
[2018-06-01 10:01] VITALS: BP 101/72; BP 123/77
--- NOTE | 2018-06-01 11:01 | NUR ---
B) The patient is awake and alert, she is oriented to self, she does not know where she is located, she says she wants to go to bed, explained to her that she is not able to go to bed she has to stay in the day room, but we can get a blanket for her and recline her in the recliner or if there are not any groups going on she can lay down on the couch. She did put herself in the floor earlier this morning, stating "I just want to go to bed." She has not mentioned any hallucinations this am. She ambulates independently. She looks forward to having a visit or phone call with her son. I) Provide prescribed meds. R) The patient is compliant with meds and she redirects well. P) Continue POC.
--- NOTE | 2018-06-01 14:42 | PN ---
PATIENT:RIANNA MURRAY MEDICAL RECORD: [id number] LOCATION:BAKARI Galvan112 ADMISSION DATE: 05/30/18 PROGRESS NOTE DATE OF SERVICE: 05/31/2018 SUBJECTIVE: The patient's case was discussed with staff. She has no new complaint. OBJECTIVE: The patient is in good behavioral control with limited insight about her condition. She generally tolerates her medicines well. We have some information from her son, who says that she began showing signs of significant memory loss more than 2 years ago. ASSESSMENT: 1. Delirium, resolved. 2. Senile dementia of the Alzheimer's type with behavioral disturbances, new diagnosis. PLAN: At this time, the patient will be started on trazodone to assist with sleep consolidation. I will be addressing her dementia with cholinesterase inhibitors after today. Clearly, she is going to require some level of supervision. What is not clear is which environment would be the least restrictive. TRANSINT:[id number] Voice Confirmation ID: [id number] DOCUMENT ID: [id number] OLESYA ERVIN MD at 1442 CC: [id number] DICTATION DATE: 05/31/18 1620 FISHERIES MANAGER: 05/31/18 2245 ADM IN [address] [place] [address]
--- NOTE | 2018-06-01 20:30 | NUR ---
B) Abdominal lap sites healing, open to air, scabbed. Denies any nausea or vomiting. Unable to state where she is or why she is here. States all she knows is that she was told she was supposed to be on complete bedrest. Stays to self, no self disclosures, no conversations with peers noted. I) Administer medications as ordered, assess mental status, redirect and reorient as needed, offer 1:1 to express feelings and voice concerns/needs. R) Compliant with medications, oriented to person, guarded, watchful. No aggression exhibited this shift thus far. P) Continue to monitor per plan of care.
[2018-06-02 05:17] LABS: HEPATITIS BE ANTIBODY Negative (Negative)
[2018-06-02 08:00] VITALS: BP 114/72; BP 124/80
--- NOTE | 2018-06-02 08:12 | NUR ---
B) The patient is awake and alert, but she is in denial about being confused. Emi the night gatehouse attendant told her some of the things she did and she said "No, I did not." Emi said "Well we want you to be here so we can see wby you are so confused." She said "I am ready to go home now." The patient is clearing, but she does have some confusion, but family states they have noticed a decline in cognition over the past two years. She ambulates well. She is calm and polite, she has poor insight into her situation. I) Provide prescribed meds. R) The patient is compliant with meds and unit milieu. P) Continue POC.
[2018-06-02 08:19] LABS: HEPATITIS BE ANTIGEN Negative (Negative)
--- NOTE | 2018-06-02 09:09 | NUR ---
The patient is complaining of back pain, rates it 8/10. Tylenol 650 mg PO given now.
--- NOTE | 2018-06-02 12:28 | NUR ---
The patient took two hush puppies that another patient offered her. Staff noticed and reminded her that she is not supposed to have bread. Staff explained to her that she is not to have meat or bread. She said "Oh, my gosh ok."
--- NOTE | 2018-06-02 15:20 | PN ---
PATIENT:RIANNA MURRAY MEDICAL RECORD: [id number] LOCATION:BAKARI Galvan112 ADMISSION DATE: 05/30/18 PROGRESS NOTE DATE OF SERVICE: 06/01/2018 SUBJECTIVE: The patient's case was discussed with staff. She has no new complaint. OBJECTIVE: The patient is in good behavioral control. She is oriented to person, but not to place, time, or situation. Her nausea and vomiting are better. She is more awake, coherent, and is not having any thoughts of harming herself. ASSESSMENT: No change in diagnoses. PLAN: Supportive and educational interventions were made. Long-term prognosis is guarded. TRANSINT:[id number] Voice Confirmation ID: [id number] DOCUMENT ID: [id number] OLESYA ERVIN MD at 1520 CC: [id number] DICTATION DATE: 06/01/18 1501 MOLD BREAKER: 06/01/18 1842 ADM IN [facility] [address] [id number]
[2018-06-02 20:54] VITALS: BP 91/44
--- NOTE | 2018-06-03 07:31 | NUR ---
B) The patient is awake, but sleepy, she knows her name and knows she is in a hospital, but can not name the hospital. She is pleasnt, but confused. She ambulates independently. She needs reminders to not eat meat or bread. I) Provide prescribed meds, redirect as needed. R) Patient is calm and pleasant, interacts well. P) Continue POC.
[2018-06-03 09:17] VITALS: BP 123/68
--- NOTE | 2018-06-03 10:04 | PN ---
PATIENT:RIANNA MURRAY MEDICAL RECORD: [id number] LOCATION:BAKARI Galvan112 ADMISSION DATE: 05/30/18 PROGRESS NOTE DATE OF SERVICE: 06/02/2018 SUBJECTIVE: The patient's case was discussed with staff. She has no new complaint. OBJECTIVE: The patient is confused, but seems a little better. She is impaired cognitively and is tolerating her medicines well. ASSESSMENT: No change in diagnoses. PLAN: Current medicines have been reviewed and will be maintained. Long-term prognosis is guarded. She is going to go home with her son who is going to provide the care and supervision she needs. TRANSINT:[id number] Voice Confirmation ID: [id number] DOCUMENT ID: [id number] OLESYA ERVIN MD at 1004 CC: [id number] DICTATION DATE: 06/02/18 1523 INSULATOR CUTTER AND FORMER: 06/02/18 1554 ADM IN [id number] [place] [address]
[2018-06-03 20:00] VITALS: BP 116/64
--- NOTE | 2018-06-03 21:17 | NUR ---
PATIENT IS QUIET AND COMPLIANT WITH MEDS. SHE STAYS TO HERSELF, HOWEVER SHE MAKES HER NEEDS KNOWN. SHE IS FLAT. NO ADVERSE REACTION TO MEDS NOTED
[2018-06-04 08:59] VITALS: BP 139/82
--- NOTE | 2018-06-04 09:00 | NUR ---
RECEIVED IN DINING ROOM WITH PEERS. AWAKE AND ALERT WITH SOME CONFUSION NOTED. CALM AND COOPERATIVE WITH CARE AND ASSESSMENT. PROVIDE PRESCRIBED MEDICATIONS. COMPLIANT WITH MEDICATIONS AND UNIT MILIEU. REDIRECT AND REORIENT NEEDED. CONTINUE PLAN OF CARE.
--- NOTE | 2018-06-04 13:57 | PN ---
PATIENT:RIANNA MURRAY MEDICAL RECORD: [id number] LOCATION:BAKARI Galvan112 ADMISSION DATE: 05/30/18 PROGRESS NOTE DATE OF SERVICE: 06/03/2018 SUBJECTIVE: The patient's case was discussed with staff. She has no new complaint. OBJECTIVE: The patient denies intent to harm herself or others. She tolerates her medicines well. She is severely impaired cognitively and only partially oriented. ASSESSMENT: No change in diagnoses. PLAN: Supportive and educational interventions were made. Long-term prognosis is guarded. TRANSINT:[id number] Voice Confirmation ID: [id number] DOCUMENT ID: [id number] OLESYA ERVIN MD at 1357 CC: [id number] DICTATION DATE: 06/03/18 1101 SALES UTILITY REPRESENTATIVE: 06/03/18 1209 ADM IN [id number] [place] [address]
[2018-06-04 18:17] VITALS: BP 120/67
--- NOTE | 2018-06-04 18:37 | NUR ---
PATIENT IS CALM, ORIENTED, COMPLIANT WITH MEDS, INTERACTING WELL WITH OTHERS. NO ADVERSE REACTION NOTED TO MEDS. WILL FOLLOW POC
[2018-06-05 08:04] VITALS: BP 139/91
--- NOTE | 2018-06-05 10:46 | NUR ---
Pt is on a regular soft diet with no meat or bread. No meat or bread x5 weeks per Ruth Pt eating ~80% of meals Will add Ensure for protein RD following
--- NOTE | 2018-06-05 16:20 | PN ---
PATIENT:RIANNA MURRAY MEDICAL RECORD: [id number] LOCATION:BAKARI Cm[facility]ua112 ADMISSION DATE: 05/30/18 PROGRESS NOTE DATE OF SERVICE: 06/04/2018 SUBJECTIVE: The patient's case was discussed with staff. She has no new complaint. OBJECTIVE: The patient is sleeping and eating reasonably well. She has not been aggressive today. ASSESSMENT: No change in diagnoses. PLAN: The patient has shown significant improvement. I would say she is not having any evidence of delirium, but she clearly has an underlying dementia. She is going to be cared for by her son. I anticipate she can be transitioned out of the hospital soon if this level of improvement continues. TRANSINT:[id number] Voice Confirmation ID: [id number] DOCUMENT ID: [id number] OLESYA ERVIN MD at 1620 CC: [id number] DICTATION DATE: 06/04/18 1402 DELIVERY CREW WORKER: 06/04/18 1607 ADM IN [facility] [address] [place] [address]
--- NOTE | 2018-06-05 16:56 | NUR ---
PATTIENT IS CALM AND COOPERATIVE WITH CARE AND ASSESSMENT. MEDICATION COMPLIANT. NO AGGRESSIVE BEHAVIOR. WILL CONTINUE PLAN OF CARE.
[2018-06-05 20:40] VITALS: BP 175/91
--- NOTE | 2018-06-06 00:30 | NUR ---
RECEIVED IN PATIENT ROOM. RESTING IN BED WITH EYES OPEN. CALM AND COOPERATIVE WITH CARE AND ASSESSMENT. NO SIGNS OF AGITATION. REDIRECT AND REORIENT NEEDED. RESTING IN BED WITH EYES CLOSED AT THIS TIME. CONTINUE PLAN OF CARE.
--- NOTE | 2018-06-06 07:51 | NUR ---
LATE ENTRY FROM 06/05 SW SPOKE TO PT'S SON TO DISCUSS DISEASE PROGRESSION OF PT. SW STATED PT SHOULD NOT DRIVE WITHOUT SUPERVISION. SW REPORTED PT IS IN MODERATE STAGES. SW EXPLAINED SAFETY IN THE HOME ENVIRONMENT. PT'S SON, ED, VERBALIZED UNDERSTANDING OF DISCUSSION AND PT'S CONDITION.
[2018-06-06 08:00] VITALS: BP 133/85
--- NOTE | 2018-06-06 10:00 | NUR ---
RECEIVED IN DINING ROOM WITH PEERS. AWAKE AND ALERT, CALM AND COOPERATIVE WITH CARE AND ASSESSMENT. NO AGITATION OR ANXIETY NOTED. REDIRECT AND REORIENT NEEDED. COMPLIANT WITH MEDICATIONS AND UNIT MILIEU. CONTINUE POC.
--- NOTE | 2018-06-06 15:55 | PN ---
PATIENT:RIANNA MURRAY MEDICAL RECORD: [id number] LOCATION:ToiRAJESHSidra Galvan112 ADMISSION DATE: 05/30/18 PROGRESS NOTE DATE OF SERVICE: 06/05/2018 SUBJECTIVE: The patient's case was discussed with staff. She has no new complaint. OBJECTIVE: The patient denies intent to harm herself or others. She generally tolerates her medicines well. Eye contact is fair. She is oriented today. ASSESSMENT: No change in diagnoses. PLAN: The patient is significantly improved. I no longer think he is delirious. She will be started on Aricept for her low level to moderate dementia. I anticipate she can be transitioned out of the hospital soon if this level of improvement continues. TRANSINT:[id number] Voice Confirmation ID: [id number] DOCUMENT ID: [id number] OLESYA ERVIN MD at 1555 CC: [id number] DICTATION DATE: 06/05/18 1639 RAILROAD PASSENGER AGENT: 06/05/18 1758 ADM IN [id number] [place] [id number]
[2018-06-06 19:34] VITALS: BP 124/79
--- NOTE | 2018-06-07 04:45 | NUR ---
RECEIVED IN DAYROOM. SITTING ON COUCH WITH PEERS AT HER SIDE. CALM AND COOPERATIVE WITH CARE AND ASSESSMENT. NO SIGNS OF AGITATION. REDIRECT AND REORIENT NEEDED. RESTING IN BED WITH EYES CLOSED AT THIS TIME. CONTINUE PLAN OF CARE.
--- NOTE | 2018-06-07 07:30 | NUR ---
REC'D PT IN HALLWAY AWAKE SOCIALIZING WITH PEERS. CALM AND COOPERATIVE WITH ASSESSMENT. NO AGGRESSION NOTED. PRESCRIBED MEDS PROVIDED. MED COMPLIANT. FALL PRECAUTIONS IN PLACE. WILL CONTINUE TO MONITOR Q 15 MINUTES FOR SAFETY. WILL CPOC.
[2018-06-07 08:00] VITALS: BP 126/83
--- NOTE | 2018-06-07 12:06 | PN ---
PATIENT:RIANNA MURRAY MEDICAL RECORD: [id number] LOCATION:BAKARI Galvan112 ADMISSION DATE: 05/30/18 PROGRESS NOTE DATE OF SERVICE: 06/06/2018 SUBJECTIVE: The patient's case was discussed with staff. She has no new complaint. OBJECTIVE: The patient is in good behavioral control. She has limited insight about her condition. ASSESSMENT: No change in diagnoses. PLAN: The patient will be maintained on current medicines. She has significantly improved. She will be given Aricept at its current dose. Her long-term prognosis is guarded. TRANSINT:[id number] Voice Confirmation ID: [id number] DOCUMENT ID: [id number] OLESYA ERVIN MD at 1206 CC: [id number] DICTATION DATE: 06/06/18 1614 DUKEY RIDER: 06/06/18 1928 ADM IN [facility] [address] [id number]
[2018-06-07] MEDS ORDERED: Aricept PO (12:16)
[2018-06-07] MEDS ORDERED: HCTZ25 MG PO (12:17)
[2018-06-07] MEDS ORDERED: K-TAB10 MEQ PO (12:17)
[2018-06-07] MEDS ORDERED: LISINOPRIL10 MG PO (12:17)
[2018-06-07] MEDS ORDERED: TRAZODONE HCL100 MG PO (12:17)
[2018-06-07] MEDS ORDERED: VITAMIN D5000 UNIT PO (12:18)
[2018-06-07] MEDS ORDERED: LIDODERM 5 %1 PATCH TRANSDERM (12:18)
[2018-06-07 19:24] VITALS: BP 136/87
--- NOTE | 2018-06-07 23:46 | NUR ---
B) Patient is alert and oriented to person and place, calm and cooperative, discharing in the morning, I) Administered scheduled medications as ordered, monitored for safety R) Mediation compliant, pleasant and cooperative, P) Continue plan of care.
[2018-06-08 09:41] VITALS: BP 119/75
--- NOTE | 2018-06-08 10:00 | NUR ---
RECEIVED PATIENT IN DINING ROOM FOR B'FAST, ALERT, CALM, COOPERATIVE. MEDS ADMIN PER ORDERS WITH COMPLETE MED COMPLIANCE NOTED. NO S/S ADVERSE REACTION TO MEDS. COOPERATIVE WITH GROUP AND STAFF REQUESTS. PATIENT TO DISCHARGE HOME IN C/O FAMILY.
--- NOTE | 2018-06-08 11:40 | NUR ---
DISCHARGE TEACHING COMPLETED. PERSONAL BELONGINGS RETURNED TO FAMILY. MEDS CALLED TO PHARMACY. DISCHARGED FROM FACILITY IN C/O FAMILY.
--- NOTE | 2018-06-08 15:48 | PN ---
PATIENT:RIANNA MURRAY MEDICAL RECORD: [id number] LOCATION:BAKARI CmAkosua112 ADMISSION DATE: 05/30/18 PROGRESS NOTE DATE OF SERVICE: 06/07/2018 SUBJECTIVE: The patient's case was discussed with staff. She has no new complaint. OBJECTIVE: The patient is in good behavioral control with limited insight about her condition. She does tolerate her medicines well. She has not been overtly aggressive. ASSESSMENT: No change in diagnoses. PLAN: The patient will be transitioned out of the hospital tomorrow. Her long-term prognosis is guarded. Supportive and educational interventions were made. TRANSINT:[id number] Voice Confirmation ID: [id number] DOCUMENT ID: [id number] OLESYA ERVIN MD at 1548 CC: [id number] DICTATION DATE: 06/07/18 184 SUPERVISOR MAINTENANCE: 06/07/18 1908 ADM IN [facility] [address] [place] [address]
--- NOTE | 2018-06-09 15:16 | PN ---
PATIENT:RIANNA MURRAY MEDICAL RECORD: [id number] LOCATION:BAKARI Galvan112 ADMISSION DATE: 05/30/18 PROGRESS NOTE DATE OF SERVICE: 06/08/2018 SUBJECTIVE: The patient's case was discussed with staff. She has no new complaint. OBJECTIVE: The patient is in good behavioral control with limited insight about her condition. She tolerates her medicines well. She is denying any thoughts of harming herself or others. ASSESSMENT: No change in diagnoses. PLAN: Current medicines have been reviewed and will be maintained. The patient is going to be transitioned out of the hospital today. Followup will be with her primary care physician. TRANSINT:[id number] Voice Confirmation ID: [id number] DOCUMENT ID: [id number] OLESYA ERVIN MD at 1516 CC: [id number] DICTATION DATE: 06/08/18 1609 TEAMSITE DEVELOPER: 06/08/18 2151 DIS IN 06/08/18 [facility] [address] [place] [address]
--- NOTE | 2018-06-10 12:11 | DS ---
PATIENT:RIANNA MURRAY :52 MEDICAL RECORD: [id number] DISCHARGE SUMMARY ADMISSION DATE: 05/30/18 DISCHARGE DATE: 06/08/18 PSYCHIATRIC DISCHARGE SUMMARY IDENTIFYING DATA: The patient is 68 years old and she is admitted to the hospital on a voluntary basis because of confusion. The patient presented to the hospital acutely confused and depressed. She denied history of substance abuse. She was agitated and impaired in the Emergency Room. At that time, she insisted she was not a drinker or user of drugs. She was clearly quite confused and was having trouble concentrating. She denied that she would seek to harm herself or others and denied psychotic symptoms. HOSPITAL COURSE: The patient was admitted to the hospital and fully evaluated from both medical, psychological, and social standpoint. She was treated with both memory enhancing and mood stabilizing medications and did show significant improvement. She was subsequently arranged to have 48-uewu-x-day care and was transitioned out of the hospital. DISCHARGE DIAGNOSES: AXIS I: Senile dementia of the Alzheimer's type with behavioral disturbances. AXIS II: None. AXIS III: Hypertension, coronary artery disease, COPD, acid reflux, and osteoarthritis. AXIS IV: Moderate. AXIS V: Global assessment of functioning is 40. PLAN: At the time of discharge, the patient was not acutely dangerous to herself or others. She was generally tolerating her medicines well. She had poor insight about her condition. Her long-term prognosis is guarded. TRANSINT:[id number] Voice Confirmation ID: [id number] DOCUMENT ID: [id number] OLESYA ERVIN MD at 1211 CC: [id number] DICTATION DATE: 06/09/18 1520 MASTER COOK: 06/10/18 0649 DIS IN 06/08/[address] [facility] [address] [place] [address]
== END 2018-06-08 11:40 | disposition home or self-care (01) | DRG 57 ==
LOC: D.PSYCH 12:20
PROVIDERS: Family Medicine; ADMIT Psychiatry & Neurology Psychiatry
DX: G30.1 Alzheimer's disease with late onset (principal); F02.81 Dementia in other diseases classified elsewhere, unspecified severity, with behavioral disturbance; F05 Delirium due to known physiological condition; I10 Essential (primary) hypertension; I25.10 Atherosclerotic heart disease of native coronary artery without angina pectoris; J44.9 Chronic obstructive pulmonary disease, unspecified; K21.9 Gastro-esophageal reflux disease without esophagitis; M19.90 Unspecified osteoarthritis, unspecified site; F41.8 Other specified anxiety disorders; J30.9 Allergic rhinitis, unspecified; E87.6 Hypokalemia; G47.00 Insomnia, unspecified; R13.10 Dysphagia, unspecified; M54.9 Dorsalgia, unspecified; G89.29 Other chronic pain

== ENCOUNTER 2019-01-05 09:00 | Outpatient (CLI) | payer MEDICARE, OTHER ==
[2018-05-31 10:40] VITALS: BMI 28.3
[~2019-01-05 09:00] MED LIST changes: +Aricept PO; +HCTZ25 MG PO; +K-TAB10 MEQ PO; +LIDODERM 5 %1 PATCH TRANSDERM; +LISINOPRIL10 MG PO; +TRAZODONE HCL100 MG PO; +VITAMIN D5000 UNIT PO
== END 2019-01-05 10:00 | disposition home or self-care (01) ==
LOC: D.MAMMO 09:00
PROVIDERS: ATTEND Family Medicine Adult Medicine
DX: Z12.31 Encounter for screening mammogram for malignant neoplasm of breast (principal)

== ENCOUNTER → 2019-01-17 13:55 | Outpatient (CLI) | payer MEDICARE, OTHER ==
[2018-05-31 10:40] VITALS: BMI 28.3
== END | disposition home or self-care (01) ==
LOC: D.CT 13:55
PROVIDERS: ATTEND Internal Medicine Gastroenterology
DX: R19.7 Diarrhea, unspecified (principal); R10.9 Unspecified abdominal pain; R63.4 Abnormal weight loss

== ENCOUNTER 2019-03-04 22:32 | Inpatient (IN) | payer MEDICARE, OTHER ==
[~2019-03-04] VITALS: Ht 160 cm; Wt 61.9 kg
--- NOTE | 2019-03-04 22:55 | NUR ---
PT BROUGHT IN PER EMS AFTER EXPRESSING SI TO FAMILY EARLIER TODAY. PT ADMITS TO BEING VERY DEPRESSED. FAMILY HERE WITH PATIENT WELL. STATES SHE HAD HER MEDS CHANGED UP A YEAR AGO AND THEY NEVER REALLY PUT HER BACK ON HER ANTIDEPRE SSANTS. PT WAS DIAGNOSED WITH ALZHEIMERS A YEAR AGO.
[2019-03-04 23:13] LABS: BASOPHILS 0 % (0-2); EOSINOPHILS 0.2 % (0-7); HEMATOCRIT 36.4 % (36.0-48.0); HEMOGLOBIN 12.2 g/dL (12-16); IMMATURE GRANULOCYTES 0.2 % (0-5); LYMPHOCYTES 21.2 % (15-50); MCH 30.9 pg (26.0-34.0); MCHC 33.5 g/dL (31.0-37.0); MCV 92.2 fL (80.0-100.0); MEAN PLATELET VOLUME 9.1 fL (7.4-10.4); MONOCYTES 9.8 % (2-11); NEUTROPHILS 68.6 % (40-80); RBC 3.95 10x6/uL (4.00-5.40); RDW 13.1 % (11.5-14.5); WBC 5.9 10x3/uL (4.8-10.8)
[2019-03-04 23:15] LABS: PLATELET COUNT 252 10x3/uL (130-400)
[2019-03-04 23:21] LABS: CALC OSMOLALITY 277 mosm/kg (275-300); CALCIUM 9.6 mg/dL (8.5-10.1); CARBON DIOXIDE 27.2 mmol/L (21.0-32.0); CHLORIDE - SERUM 103 mmol/L (98-107); CREATININE - SERUM 0.8 mg/dL (0.6-1.3); GLUCOSE 99 mg/dL (74-106); SODIUM 140 mmol/L (136-145); UREA NITROGEN 10 mg/dL (7-18); eGFR NON AFRICAN AMERICAN 75 mL/min (90-120)
[2019-03-04 23:28] LABS: ALBUMIN 3.8 g/dL (3.4-5.0); ALKALINE PHOSPHATASE 108 U/L (46-116); ALT (SGPT) 21 U/L (10-68); BILIRUBIN - TOTAL 0.33 mg/dL (0.2-1.3); PROTEIN - SERUM 7.4 g/dL (6.4-8.2)
[2019-03-04 23:43] LABS: UDS - AMPHET NEGATIVE QUAL (NEGATIVE); UDS - BARB NEGATIVE QUAL (NEGATIVE); UDS - BENZO NEGATIVE QUAL (NEGATIVE); UDS - COCAINE NEGATIVE QUAL (NEGATIVE); UDS - OPIATE NEGATIVE QUAL (NEGATIVE); UDS - PCP NEGATIVE QUAL (NEGATIVE); UDS - THC NEGATIVE QUAL (NEGATIVE)
[2019-03-04 23:49] LABS: APPEARANCE CLEAR (CLEAR); BILIRUBIN NEGATIVE (NEGATIVE); COLOR YELLOW (YELLOW); GLUCOSE NEGATIVE (NEGATIVE); KETONE NEGATIVE (NEGATIVE); NITRITE NEGATIVE (NEGATIVE); PROTEIN NEGATIVE (NEGATIVE); SPECIFIC GRAVITY 1.015 (1.005-1.020); UROBILINOGEN NORMAL (NORMAL)
[2019-03-04 23:50] LABS: BACTERIA FEW /hpf (NEGATIVE); EPITHELIAL CELLS 0-5 /hpf (0-5); RED CELLS - URINE 0-5 /hpf (0-5); WHITE CELLS - URINE 0-5 /hpf (NEGATIVE)
--- NOTE | 2019-03-05 01:02 | NUR ---
PATIENT CAME TO THIS UNIT ACCOMPANIED PER SON AND HOSPITAL STAFF, SHE HAS BEEN FEELING DEPRESSED AND WANTING TO NOT LIVE, SHE WANTS HELP WITH HER MEDS AND WITH SLEEP. SHE IS CURRENTLY NOT SUICIDIAL AT THIS TIME AND IS ACTUALLY A FULL CODE. SHE SIGNED HER ADMISSION PAPERWORK AND SHE WAS ORIENTED TO UNIT AND HOW TO USE THE CALL [employer] FOR ASSISTANCE, BED ALARM PLACED ADN IS TURNED ON. HER CODE WORD IS "MATER".
--- NOTE | 2019-03-05 02:31 | NUR ---
PATIENT IN BED CRYING. REQUEST SOMETHING FOR ANXIETY. PRN ATIVAN 0.5 MG PO GIVEN FOR ANXIETY.
--- NOTE | 2019-03-05 04:43 | NUR ---
RESTING IN BED CALMLY WITH EYES OPEN. NOT CRYING.
[2019-03-05 08:15] VITALS: BP 143/83
[2019-03-05 08:25] LABS: HDL CHOLESTEROL 51 mg/dL (32-96); THYROID STIMULATING HORMONE 0.47 uIU/mL (0.36-3.74); TRIGLYCERIDE 128 mg/dL (30-200)
[2019-03-05 08:37] LABS: CHOL - HDL RATIO 3.2 ratio (2.3-4.1); CHOLESTEROL, TOTAL 161 mg/dL (0-200); LDL CHOLESTEROL 85 mg/dL (0-100); LDL-HDL RATIO 1.7 ratio (1.5-3.5)
--- NOTE | 2019-03-05 13:28 | NUR ---
CALLED [facility] REQUESTED MEDICATION LIST. SPOKE WITH IKER. AWAITING ON MED LIST AT THIS TIME.
[2019-03-05] MEDS ORDERED: TESSALON PERLE100 MG PO (13:57)
[2019-03-05] MEDS ORDERED: QUESTRAN LIG1 PACKET PO (13:58)
[2019-03-05] MEDS ORDERED: LISINOPRIL40 MG PO (13:59)
--- NOTE | 2019-03-05 14:18 | NUR ---
PT IS VERY TEARFUL TODAY. CALM AND COOPERATIVE WITH ASSESSMENT. PT ADMITS TO BEING DEPRESSED. PT DENIES ANY SI AT THIS TIME. PT REQUESTED MED FOR ANXIETY. ATIVAN 0.5MG PO GIVEN PER ORDER. TOLERATED WELL. MEDS UPDATED IN COMPUTER PER PHARMACY PRINT OUT FROM [facility]. MED COMPLIANT. WILL CPOC.
[2019-03-05 15:48] VITALS: Ht 160 cm; Wt 61.9 kg
[2019-03-05 20:06] VITALS: BP 124/70
--- NOTE | 2019-03-05 21:14 | NUR ---
RECEIVED IN DAYROOM. WALKING AROUND SOCIALIZING WITH PEERS. CALM AND COOPERATIVE WITH CARE AND ASSESSMENT. NO STATEMENTS OF SELF HARM MADE. STATES SHE HOPES TOMORROW IS A BETTER DAY. ENCOURAGE TO EXPRESS NEEDS. GETTING READY FOR BED AT THIS TIME. CONTINUE PLAN OF CARE
[2019-03-06 07:13] LABS: RAPID PLASMA REAGIN Non Reactive (Non Reactive)
[2019-03-06 08:00] VITALS: BP 117/78
--- NOTE | 2019-03-06 11:23 | PSY ---
PATIENT NAME:RIANNA MURRAY MEDICAL RECORD: [id number] : 52 LOCATION:[facility] Cole1127 ADMISSION DATE: 03/04/19 ACCOUNT: [id number] PSYCHIATRIC EVALUATION DATE OF EVALUATION: 03/05/19 IDENTIFYING DATA: The patient is 69 years old and she is admitted to the hospital on a voluntary basis. CHIEF COMPLAINT: Depression. HISTORY OF PRESENT ILLNESS: The patient drove away from her home yesterday, she called her son and told him she was going to kill herself. She did not take the pills in the car and he was able to find her and have her brought to the Emergency Room. She endorses numerous neurovegetative depressive symptoms, has been crying, is very anxious, and reports overwhelming anxiety, fears, and feels helpless and hopeless. She attributes much of this to the chronic diarrhea that she has and feels that it is not being adequately addressed. In summary, basically she says she has had diarrhea since having hernia surgery at the beginning of this year. She says that ever since the hernia surgery, she has diarrhea and that it is unpredictable and once the urge hits her, she cannot control it and she will soil her pants. She says this is keeping her from going out into public and she wears an undergarments. She does not want to eat because every time she does, she has the diarrhea. She says she has been seen by a buffing and polishing wheel repairer and a CAT scan has found nothing. She says they have scheduled her for a colonoscopy, but that is not until August. She feels very frustrated. PAST MEDICAL HISTORY: Significant for the chronic diarrhea, hysterectomy, and hernia surgery as mentioned above. PAST SURGICAL HISTORY: She has also had a bladder sling performed, the gallbladder surgery, hysterectomy, hemorrhoidectomy, and a Willow fundoplication. PAST PSYCHIATRIC HISTORY: Significant for a previous hospitalization here in May for depressive symptoms with thoughts of self-harm. FAMILY HISTORY: Significant for diabetes, hypertension ,and cardiovascular disease. ALLERGIES: METOCLOPRAMIDE. CURRENT MEDICATIONS: Include Singulair, Aricept, lisinopril, trazodone, potassium, HydroDIURIL, vitamin D3. SOCIAL HISTORY: The patient continues to smoke cigarettes. She does not drink or use drugs. She is . She lives with her son. 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 MENTAL STATUS EXAMINATION: The patient is awake, alert and oriented fully. Her mood is flat. Her affect is constricted. Thought processes are circumstantial. Memory, concentration, and abstraction abilities are moderate. She denies any active intent to harm herself or others as well as any overt psychotic symptoms. ASSETS: Supportive family members. LIABILITIES: Limited insight. DIAGNOSTIC IMPRESSION: Major depressive episode, severe without psychotic features; senile dementia of the Alzheimer's type; coronary artery disease; hypertension; anemia; COPD; chronic back pain, status post Willow fundoplication, status post laminectomy. PLAN: At this time, the patient will be admitted to the hospital and fully evaluated from both a medical, psychological, and social standpoint. She will be treated with both mood stabilizing and memory enhancing medications. Her long-term prognosis is guarded. TRANSINT:[id number] Voice Confirmation ID: [id number] DOCUMENT ID: [id number] OLESYA ERVIN MD at 1123 CC: [id number] DICTATION DATE: 03/05/19 171 SYSTEMS INTEGRATOR: 03/05/19 1817 ADM IN [facility] [address] [place] [address]
--- NOTE | 2019-03-06 15:05 | NUR ---
PT IS SITTING IN DAYROOM WITH PEERS SOCIALIZING. PT STATES " I FEEL A LITTLE BETTER TODAY." CALM AND COOPERATIVE WITH ASSESSMENT. MED COMPLIANT. PT IS SOMEWHAT TEARFUL TODAY, BUT BETTER THAN YESTERDAY. PT DENIES SI AT THIS TIME. WILL CPOC.
--- NOTE | 2019-03-06 19:45 | NUR ---
RECEIVED IN DINING ROOM AREA. WALKING ABOUT SOCIALIZING. CALM AND COOPERATIVE WITH CARE AND ASSESSMENT. DENIES SELF HARM. ENCOURAGE TO EXPRESS NEEDS. CONTINUES TO SOCIALIZE WITH PEERS AT TIMES. CONTINUE PLAN OF CARE
[2019-03-06 20:09] VITALS: BP 135/72
[2019-03-07 08:26] VITALS: BP 103/70
--- NOTE | 2019-03-07 10:00 | NUR ---
RECEIVED PATIENT IN DINING ROOM FOR B'FAST, ALERT, CALM, ISOLATIVE, DENIES SUICIDAL IDEATIONS, DEPRESSED. MEDS ADMIN PER ORDERS WITH COMPLETE MED COMPLICANCE NOTED, COOPERATIVE WITH PLAN OF CARE. CONT POC DIRECTED.
--- NOTE | 2019-03-07 12:53 | PN ---
PATIENT:RIANNA MURRAY MEDICAL RECORD: [id number] LOCATION:[facility]I CmAkosua112 ADMISSION DATE: 03/04/19 PROGRESS NOTE DATE OF SERVICE: 03/06/2019 SUBJECTIVE: The patient's case was discussed with staff. She has no new complaint. OBJECTIVE: The patient is not eating well. She only ate 10% of lunch, 25% of dinner yesterday. I am not sure how she has done today. She says she has had diarrhea, but there is no documentation that she has shown it to the staff. ASSESSMENT: Major depression. PLAN: Current medicines have been reviewed. She is insisting that she did not sleep last night. The staff are reporting that she slept 6 hours. She insists that is wrong. I will give her trazodone to assist with sleep consolidation. TRANSINT:[id number] Voice Confirmation ID: [id number] DOCUMENT ID: [id number] OLESYA ERVIN MD at 1253 CC: [id number] DICTATION DATE: 03/06/19 1137 PACKAGING ENGINEER: 03/06/19 1143 ADM IN [facility] [address] [place] [id number]
--- NOTE | 2019-03-07 18:46 | NUR ---
RECEIVED IN DAYROOM. SITTING IN CHAIRLOOKING AT A BOOK. CALM AND COOPERATIVE WITH CARE AND ASSESSMENT. NO STATEMENTS OF SLEF HARM MADE. ENCOURAGE TO EXPRESS NEEDS. CONTINUES TO SIT QUIETLY IN DAYROOM. CONTINUE PLAN OF CARE
[2019-03-07 20:01] VITALS: BP 135/81
[2019-03-08 08:50] VITALS: BP 113/76
--- NOTE | 2019-03-08 11:11 | NUR ---
NUTRITION F/U PT TOLERATING REG DIET WITH 65% AVERAGE INTAKE RECENT MEALS. SLIGHT WT DECREASE FROM ADMIT. NO RECENT BM RECORDED. WILL ADD ENSURE TO MEALS AND CONTINUE TO MONITOR. RD FOLLOWING
--- NOTE | 2019-03-08 13:37 | NUR ---
PT SITTING AND ATTENDING GROUP. NO ACUTE DISTRESS NOTED. PT DID NOT STATED ANY SI. ALERT AND ORIENTED TO PERSON, PLACE AND TIME. IF ANY REDIRECTED NEEDED. COOPERATIVE WITH STAFF, MEDS AND ASSESSMENT. WILL CONT PLAN OF CARE.
--- NOTE | 2019-03-08 15:01 | PN ---
PATIENT:RIANNA MURRAY MEDICAL RECORD: [id number] LOCATION:ToiRAJESHSidra Galvan112 ADMISSION DATE: 03/04/19 PROGRESS NOTE DATE OF SERVICE: 03/07/2019 SUBJECTIVE: The patient's case was discussed with staff. She has no new complaint. OBJECTIVE: The patient has no thoughts of harming herself or others. She is tolerating her medicines well. She insists she is still having diarrhea, but it has not been observed. ASSESSMENT: Major depression. PLAN: Current medicines have been reviewed and will be maintained. Long-term prognosis is guarded. TRANSINT:[id number] Voice Confirmation ID: [id number] DOCUMENT ID: [id number] OLESYA ERVIN MD at 1501 CC: [id number] DICTATION DATE: 03/07/19 170 HOT DIP PLATING SUPERVISOR: 03/07/19 2258 ADM IN [facility] [address] [place] [id number]
[2019-03-08 20:20] VITALS: BP 121/69
--- NOTE | 2019-03-08 22:06 | NUR ---
REC'D SITTING IN THE DAYROOM WITH PEERS. INTERACTS WITH PEERS AND STAFF. ORIENTED X4. PLEASANT AND COOPERATIVE. ADMINISTER MEDS AND MONITOR COMPLIANCE. OBTAIN VERBAL NO HARM CONTRACT. MED COMPLIANT. CONTRACTS VERBALLY FOR NO HARM. CONTINUE POC AND PROVIDE SAFE ENVIRONMENT.
--- NOTE | 2019-03-09 07:34 | NUR ---
B) The patient is awake and she is sitting on her bed reading. She denies any S.I. today. She is flat to blunted in affect. I) Provide prescribed meds. R) The patient is compliant with meds. P) Continue POC.
[2019-03-09 09:39] VITALS: BP 114/68
--- NOTE | 2019-03-09 14:51 | PN ---
PATIENT:RIANNA MURRAY MEDICAL RECORD: [id number] LOCATION:[facility]I CmAkosua112 ADMISSION DATE: 03/04/19 PROGRESS NOTE DATE OF SERVICE: 03/08/2019 SUBJECTIVE: The patient's case was discussed with staff. She has no new complaint. OBJECTIVE: The patient denies intent to harm herself or others. She is very pleased that she has had 2 formed stools, 1 yesterday and 1 today. This is of significant since the entire reason for her being admitted was related to her being extremely distressed about an intractable problem with diarrhea. I am not sure how to explain this, but at any rate it is an improvement that she also is obviously pleased by. I am going to reduce the dose of her Ativan slightly. ASSESSMENT: Major depression. PLAN: Supportive and educational interventions were made. I am going to give the Effexor another day at this dose and we will almost certainly increase it tomorrow. TRANSINT:[id number] Voice Confirmation ID: [id number] DOCUMENT ID: [id number] OLESYA ERVIN MD at 1451 CC: [id number] DICTATION DATE: 03/08/19 1550 ROOFING APPRENTICE: 03/08/19 1628 ADM IN [place] [id number] [place] [address]
--- NOTE | 2019-03-09 15:51 | NUR ---
PT SITTING IN CHAIR IN DINING AREA CRYING AT THIS TIME. NURSE ASKED WHAT WAS WRONG. SHE STATED SHE WANTED HER STOMACH PROBLEM FIGURED OUT BUT DIDN'T WANT TO SPEND THE WEEKEND IN THE CRAZY HOUSE. PT REQUESTED A ATIVAN FOR HER NERVES. ATIVAN 0.5 MG PO GIVEN PER DR. ERVIN ORDER. WILL REASSES Q 1 HOUR.
[2019-03-09 20:00] VITALS: BP 106/64
--- NOTE | 2019-03-09 23:07 | NUR ---
B.) PT IS ALERT AND ORIENTED X4. PT DENIES SI. SHE IS CALM AND COOPERATIVE WITH STAFF. SHE IS OBSERVED SOCIALIZING WITH PEERS. SHE IS ABLE TO AMBULATE WITHOUT ASSISTANCE AND MAKE HER NEEDS KNOWN. I.) PROVIDE PM MEDICATIONS. R.) COMPLIANT WITH ALL MEDICATIONS. P.) CONTINUE PLAN OF CARE
--- NOTE | 2019-03-10 08:02 | PN ---
PATIENT:RIANNA MURRAY MEDICAL RECORD: [id number] LOCATION:BAKARI Galvan112 ADMISSION DATE: 03/04/19 PROGRESS NOTE DATE OF SERVICE: 03/09/2019 SUBJECTIVE: The patient's case was discussed with staff. She has no new complaint. OBJECTIVE: The patient is in good behavioral control with poor insight about her condition. She does tolerate her medicines well. ASSESSMENT: Major depressive episode. PLAN: Current medicines have been reviewed. Unfortunately, she has had her return of the diarrhea. I am going to increase the dose of her Effexor. TRANSINT:[id number] Voice Confirmation ID: [id number] DOCUMENT ID: [id number] OLESYA ERVIN MD at 0802 CC: [id number] DICTATION DATE: 03/09/19 151 MATERIAL FLOW ENGINEER: 03/09/192124 ADM IN [facility] [address] [place] [id number]
[2019-03-10 09:16] VITALS: BP 114/62
--- NOTE | 2019-03-10 11:36 | NUR ---
The patient does say she is having diarrhea today, but she has not shown staff, she told Dr. Fortune that she is embarrassed. Listened to her stomach and her bowel sounds are not hyperactive. She ambulates independently. She is frustrated about her BM's. She denies SI., she has some depression, but she is reactive in affect. Provide prescribed meds. The patient is compliant with meds. Continue POC.
--- NOTE | 2019-03-10 19:50 | NUR ---
RECEIVED IN DAYROOM. WATCHING TV. CALM AND COOPERATIVE WITH CARE AND ASSESSMENT. DENIES THOUGHTS OF SELF HARM. REDIRECT AND REORIENT NEEDED. CONTINUES TO WATCH TV WHILE WAITING ON PM MEDICATIONS. CONTINUE PLAN OF CARE.
[2019-03-10 20:00] VITALS: BP 104/67
[2019-03-11 08:00] VITALS: BP 95/71
--- NOTE | 2019-03-11 16:52 | NUR ---
PATIENT ALERT, CALM, COOPERATIVE. PT HAS HAD AN UNEVENTLFUL DAY. MEDS ADMIN PER ORDERS WITH COMPLETE MED COMPLIANCE NOTED. CONT PLAN OF CARE DIRECTED. DENIES S.I. AT THIS TIME.
[2019-03-11 20:10] VITALS: BP 105/70
--- NOTE | 2019-03-11 22:26 | NUR ---
RECEIVED IN DAYROOM. SITTING IN A CHAIR SOCIALIZING WITH A PEER. CALM AND COOPERATIVE WITH CARE AND ASSESSMENT. DENIES THOUGHTS OF SELF HARM. ENCOURAGE TO EXPRESS NEEDS. RESTING IN BED WITH EYES CLOSED. CONTINUE PLAN OF CARE
[2019-03-12 08:28] VITALS: BP 114/54
--- NOTE | 2019-03-12 11:18 | NUR ---
RECEIVED PT. IN DINING ROOM FOR B'FAST, ALERT, CALM, COOPERATIVE, PLEASANT. MEDS ADMIN. PER ORDERS WITH COMPLETE MED COMPLIANCE NOTED. ISOLATES SELF IN THE DAYROOM. COOPERATIVE WITH PLAN OF CARE. CONT POC DIRECTED.
--- NOTE | 2019-03-12 11:41 | NUR ---
SON CALLED TO CHECK ON PATIENT'S MEDS. ASKED ABOUT CHANGING FROM EFFEXOR TO WELLBUTRIN FOR SMOKING CESSATION.
--- NOTE | 2019-03-12 15:49 | PN ---
PATIENT:RIANNA MURRAY MEDICAL RECORD: [id number] LOCATION:BAKARI Galvan112 ADMISSION DATE: 03/04/19 PROGRESS NOTE DATE OF SERVICE: 03/10/2019 SUBJECTIVE: The patient's case was discussed with staff. She has no new complaint. OBJECTIVE: The patient said she had 2 diarrhea episodes this morning. Her bowel sounds are actually reduced. She did not show them to staff even though she has been instructed to do so. She denies that she would seek to harm herself. ASSESSMENT: Major depression. PLAN: Current medicines have been reviewed and will be maintained. Long-term prognosis is guarded. I do not view her as acutely suicidal. I would like to help her get some answers about her diarrhea if possible. TRANSINT:[id number] Voice Confirmation ID: [id number] DOCUMENT ID: [id number] OLESYA ERVIN MD at 1549 CC: [id number] DICTATION DATE: 03/10/1935 MATERIAL HANDLER 2ND SHIFT: 03/10/19 0848 ADM IN [place] [id number] [place] [id number]
--- NOTE | 2019-03-12 15:49 | PN ---
PATIENT:RIANNA MURRAY MEDICAL RECORD: [id number] LOCATION:BAKARI Galvan112 ADMISSION DATE: 03/04/19 PROGRESS NOTE DATE OF SERVICE: 03/11/2019 SUBJECTIVE: The patient's case was discussed with staff. She has no new complaint. OBJECTIVE: The patient is in good behavioral control with no thoughts of harming herself or others. She is still experiencing the diarrhea. She is very frustrated by this. ASSESSMENT: Major depression. PLAN: Current medicines will be maintained. I anticipate she can be transitioned out of the hospital soon. TRANSINT:[id number] Voice Confirmation ID: [id number] DOCUMENT ID: [id number] OLESYA ERVIN MD at 1549 CC: [id number] DICTATION DATE: 03/11/19 1159 ENGINE RESEARCH ENGINEER: 03/11/19 1210 ADM IN [place] [address] [place] [address]
[2019-03-12] MEDS ORDERED: LISINOPRIL10 MG PO (16:30)
[2019-03-12] MEDS ORDERED: EFFEXOR50 MG PO (16:31)
[2019-03-12] MEDS ORDERED: DESERYL PO (16:31)
[2019-03-12] MEDS ORDERED: PEPCID PO (16:32)
[2019-03-12] MEDS ORDERED: GAS-X125 M1 PO (16:32)
[2019-03-12] MEDS ORDERED: FIBERCON625 MG PO (16:32)
[2019-03-12] MEDS ORDERED: FLORANEX / LACT1 TAB PO (16:32)
[2019-03-12] MEDS ORDERED: LOPERAMIDE HCL2 MG PO (16:32)
[2019-03-12] MEDS ORDERED: THERAGRAN M [BK1 TAB PO (16:33)
[2019-03-12 20:05] VITALS: BP 112/72
[2019-03-13 08:18] VITALS: BP 107/65
--- NOTE | 2019-03-13 11:00 | NUR ---
AWAKE, ALERT AND ORIENTED X 3. CALM AND COOPERATIVE WITH CARE AND ASSESSMENT. MEDICATION COMPLIANT. WILL CONTINUE TO MONITOR. FALL PRECAUTIONS IN PLACE.
--- NOTE | 2019-03-13 11:15 | NUR ---
DISCHARGE PAPER WORK COMPLETED. INSTRUCTIONS GIVEN TO PATIENT AND SON. LEFT TO GO HOME VIA PRIVATE CAR.
--- NOTE | 2019-03-13 15:28 | PN ---
PATIENT:RIANNA MURRAY MEDICAL RECORD: [id number] LOCATION:BAKARI Galvan112 ADMISSION DATE: 03/04/19 PROGRESS NOTE DATE OF SERVICE: 03/12/2019 SUBJECTIVE: The patient's case was discussed with staff. She has no new complaint. OBJECTIVE: The patient is in good behavioral control with very limited insight about her situation. She has had no further loose stools and in fact, has not had a bowel movement for 2 days, even though she is eating adequately. ASSESSMENT: Major depression. PLAN: The patient has no evidence of acute or direct dangerousness. She will be transitioned out of the hospital tomorrow. Followup will be with her primary care physician and psychiatrist at the outpatient intensive program at [facility]. She also has a followup appointment with her primer charger. TRANSINT:[id number] Voice Confirmation ID: [id number] DOCUMENT ID: [id number] OLESYA ERVIN MD at 1528 CC: [id number] DICTATION DATE: 03/12/19 162 GASOLINE DRAGLINE OPERATOR: 03/12/19 2150 DIS IN 03/13/19 [facility] [address] [place] [address]
--- NOTE | 2019-03-14 14:20 | PN ---
PATIENT:RIANNA MURRAY MEDICAL RECORD: [id number] LOCATION:BAKARI Galvan112 ADMISSION DATE: 03/04/19 PROGRESS NOTE DATE OF SERVICE: 03/13/2019 SUBJECTIVE: The patient's case was discussed with staff. She has no new complaint. OBJECTIVE: The patient is in good behavioral control. She has poor insight about her condition. She has had no further episodes of diarrhea. She denies that she would seek to harm herself. ASSESSMENT: Major depression. PLAN: The patient will be discharged to home today. Followup will be with her primary care physician and she is referred to outpatient mental health followup. TRANSINT:[id number] Voice Confirmation ID: [id number] DOCUMENT ID: [id number] OLESYA ERVIN MD at 1420 CC: [id number] DICTATION DATE: 03/13/19 1551 CARDIAC CATHETERIZATION TECHNICIAN: 03/13/19 2215 DIS IN 03/13/19 [facility] [address] [place] [address]
--- NOTE | 2019-03-16 14:32 | DS ---
PATIENT:RIANNA MURRAY :52 MEDICAL RECORD: [id number] DISCHARGE SUMMARY ADMISSION DATE: 03/04/19 DISCHARGE DATE: 03/13/19 IDENTIFYING DATA: The patient is 69 years old and she was admitted to the hospital on a voluntary basis because of confusion. The patient has a history of depression and a history of substance abuse. She was apparently agitated and impaired in the Emergency Room. She was quite confused and was having trouble concentrating and was not making coherent thoughts that could be adequately communicated to people. She had no obvious medical or neurologic symptoms and she was subsequently transferred to the behavioral unit for evaluation and treatment. HOSPITAL COURSE: The patient was admitted to the hospital and comprehensively evaluated from both a medical, psychological, and social standpoint. She was treated with both memory enhancing and mood stabilizing medications. It was fairly clear that the patient had some cognitive impairment as well as underlying delirium, which rapidly cleared. She was subsequently discharged home and followup was to be with an outpatient psychiatrist. She was also felt to be depressed. DISCHARGE DIAGNOSES: Major depressive episode moderate severity without psychotic symptoms, mild cognitive impairment, hypertension, coronary artery disease, and chronic obstructive pulmonary disease. PLAN: At the time of discharge, the patient was in good behavioral control and had no thoughts of harming herself or others. TRANSINT:[id number] Voice Confirmation ID: [id number] DOCUMENT ID: [id number] OLESYA ERVIN MD at 1432 CC: [id number] DICTATION DATE: 03/15/19 1538 COPY MESSENGER: 03/16/19 0246 DIS IN 03/13/19 [place] [place] [address]
== END 2019-03-13 11:15 | disposition home or self-care (01) | DRG 885 ==
LOC: D.ER 22:32 → D.PSYCH 23:56
PROVIDERS: Family Medicine; ADMIT Psychiatry & Neurology Psychiatry; ATTEND Psychiatry & Neurology Psychiatry
DX: F33.2 Major depressive disorder, recurrent severe without psychotic features (principal); F02.81 Dementia in other diseases classified elsewhere, unspecified severity, with behavioral disturbance; G30.1 Alzheimer's disease with late onset; I25.10 Atherosclerotic heart disease of native coronary artery without angina pectoris; I10 Essential (primary) hypertension; E78.5 Hyperlipidemia, unspecified; D64.9 Anemia, unspecified; J44.9 Chronic obstructive pulmonary disease, unspecified; M54.5 Low back pain; F17.200 Nicotine dependence, unspecified, uncomplicated; K21.9 Gastro-esophageal reflux disease without esophagitis; J30.9 Allergic rhinitis, unspecified; G47.00 Insomnia, unspecified; G62.9 Polyneuropathy, unspecified; K52.9 Noninfective gastroenteritis and colitis, unspecified; R14.3 Flatulence; E55.9 Vitamin D deficiency, unspecified

== ENCOUNTER → 2019-05-30 07:42 | Outpatient (CLI) | payer MEDICARE, OTHER ==
[2019-03-05 15:48] VITALS: BMI 20.3
[~2019-05-30 07:42] MED LIST changes: +DESERYL PO; +EFFEXOR50 MG PO; +FIBERCON625 MG PO; +FLORANEX / LACT1 TAB PO; +GAS-X125 M1 PO; +LISINOPRIL40 MG PO; +LOPERAMIDE HCL2 MG PO; +PEPCID PO; +QUESTRAN LIG1 PACKET PO; +TESSALON PERLE100 MG PO; +THERAGRAN M [BK1 TAB PO
== END | disposition home or self-care (01) ==
LOC: D.RT 07:42
PROVIDERS: ATTEND Internal Medicine Pulmonary Disease
DX: J44.9 Chronic obstructive pulmonary disease, unspecified (principal)

== ENCOUNTER → 2019-07-25 08:15 | Outpatient (CLI) | payer MEDICARE, OTHER ==
[2019-03-05 15:48] VITALS: BMI 20.3
== END | disposition home or self-care (01) ==
LOC: D.HCCARDIO 08:15
PROVIDERS: ATTEND Internal Medicine Interventional Cardiology
DX: I25.10 Atherosclerotic heart disease of native coronary artery without angina pectoris (principal)

== ENCOUNTER → 2019-11-13 15:48 | Outpatient (CLI) | payer MEDICARE, OTHER ==
[2019-03-05 15:48] VITALS: BMI 20.3
[2019-11-13 17:02] LABS: AMYLASE - SERUM 61 U/L (25-115); LIPASE 190 U/L (73-393)
== END | disposition home or self-care (01) ==
LOC: D.LAB 15:48
PROVIDERS: ATTEND Internal Medicine Gastroenterology
DX: R19.7 Diarrhea, unspecified (principal); R63.4 Abnormal weight loss

== ENCOUNTER 2019-12-10 11:31 | Day surgery (SDC) | payer MEDICARE, OTHER ==
[~2019-12-10] VITALS: Ht 160 cm; Wt 56.8 kg
[2019-12-10 11:58] LABS: BASOPHILS 0 % (0-2); EOSINOPHILS 0 % (0-7); HEMATOCRIT 42.4 % (36.0-48.0); HEMOGLOBIN 14.5 g/dL (12-16); IMMATURE GRANULOCYTES 0.1 % (0-5); LYMPHOCYTES 13.9 % (15-50); MCHC 34.2 g/dL (31.0-37.0); MCV 93.6 fL (80.0-100.0); MEAN PLATELET VOLUME 9.1 fL (7.4-10.4); MONOCYTES 6.5 % (2-11); NEUTROPHILS 79.5 % (40-80); PLATELET COUNT 262 10x3/uL (130-400); RBC 4.53 10x6/uL (4.00-5.40); RDW 12.9 % (11.5-14.5); WBC 9.2 10x3/uL (4.8-10.8)
[2019-12-10 12:01] LABS: ANION GAP 8.7 mmol/L (8-16); CALCIUM 9.4 mg/dL (8.5-10.1); CARBON DIOXIDE 31.1 mmol/L (21.0-32.0); POTASSIUM - SERUM 3.8 mmol/L (3.5-5.1)
[2019-12-10] MEDS ORDERED: PROPRANOLOL HCL20 MG PO (12:29)
[2019-12-10 12:30] VITALS: BP 137/86; Ht 160 cm; Wt 56.8 kg
--- NOTE | 2019-12-10 14:45 | NUR ---
DISCHARGE INSTRUCTIONS REVIEWED WITH PATIENT AND FAMILY MEMBER. DISCHARGED HOME VIA WHEELCHAIR TO PRIVATE VEHICLE WITH FAMILY MEMBER
--- NOTE | 2019-12-11 15:39 | OP ---
PATIENT NAME: RIANNA MURRAY MEDICAL RECORD: [id number] :52 LOCATION:[facility] ADMISSION DATE: SURGEON: ASHLEY LEDEZMA DO DATE OF OPERATION: 12/10/2019 PROCEDURE: Colonoscopy with biopsies and stool collection. INDICATION FOR PROCEDURE: Diarrhea, generalized abdominal tenderness, abnormal weight loss. SCOPE: Olympus video pediatric colonoscope. MEDICATIONS: Propofol 250 mg IV per anesthesia. WITHDRAWAL TIME: 11 minutes. ESTIMATED BLOOD LOSS: Minimal. COMPLICATIONS: None. FINDINGS: Informed consent was given. The patient was made comfortable with the above medication. After reaching an adequate level of sedation by slow IV push, the patient was placed on her left side. A digital rectal examination was performed and was normal. The endoscope was advanced under direct visualization through the rectum to the cecum and terminal ileum. The endoscope was slowly withdrawn and the mucosa was carefully examined. The prep quality was good. There were no polyps visualized on today's examination. There were a few small scattered diverticula located in the sigmoid colon without evidence of diverticulitis. There were no polyps visualized on today's examination. Multiple cold forceps biopsies were taken to submit for histopathology and stool was collected to submit for further stool studies. Retroflexion was performed in the rectum with visualization of normal rectal wall. The endoscope was withdrawn from the patient. The patient tolerated the procedure well and there were no complications. IMPRESSION: 1. Mild diverticulosis of the sigmoid colon. 2. Otherwise, normal colonoscopy. PLAN AND RECOMMENDATIONS: 1. Discharge home when recovery parameters are met. 2. Follow up biopsy specimen results. 3. High-fiber diet. 4. Continue current medications including Zintab but try to increase to 3 capsules with meals and 2 capsules with snacks. 5. Dicyclomine 20 mg t.i.d. p.r.n. loose stools or abdominal pain or cramping. 6. Recall colonoscopy in 5 years. NTS:[id number] Voice Confirmation ID: [id number] DOCUMENT ID: [id number] OPERATIVE REPORT [id number] RIANNA MURRAY ASHLEY LEDEZMA DO at 1539 CC: [id number] DICTATION DATE: 12/10/19 1352 BATT PACKER: 12/10/19 2247 [facility] 12/10/19 [place] [id number] [place] [address]
== END 2019-12-10 14:45 | disposition home or self-care (01) ==
LOC: D.OPS 11:31
PROVIDERS: Anesthesiology; ATTEND Internal Medicine Gastroenterology
DX: R19.7 Diarrhea, unspecified (principal); R10.84 Generalized abdominal pain; R63.4 Abnormal weight loss

== ENCOUNTER 2020-08-08 09:30 | Outpatient (CLI) | payer MEDICARE, OTHER ==
[2019-12-10 12:30] VITALS: BMI 22.1
[~2020-08-08 09:30] MED LIST changes: +PROPRANOLOL HCL20 MG PO
== END 2020-08-08 10:00 | disposition home or self-care (01) ==
LOC: D.MAMMO 09:30
PROVIDERS: ATTEND Emergency Medicine
DX: Z12.31 Encounter for screening mammogram for malignant neoplasm of breast (principal)

== ENCOUNTER 2020-10-10 13:17 | Outpatient (CLI) | payer MEDICARE, OTHER ==
[2019-12-10 12:30] VITALS: BMI 22.1
== END 2020-10-10 15:52 | disposition home or self-care (01) ==
LOC: D.RT 13:17 → D.SDCHOLD 13:20 → D.RT 14:00 → D.SDCHOLD 10-11 12:19
PROVIDERS: ATTEND Internal Medicine Pulmonary Disease
DX: J44.9 Chronic obstructive pulmonary disease, unspecified (principal)